=== PATIENT | male | born 1955 | race Caucasian/White ===

== ENCOUNTER 2023-04-06 21:38 | Emergency (ER) | payer MEDICARE, SELFPAY ==
[2023-04-06 21:42] VITALS: BP 175/100; PULSE 112; RESP 19; TEMP 36.3; O2SAT 97
[2023-04-07 00:38] VITALS: BP 179/98; PULSE 109; RESP 18; O2SAT 97
[2023-04-07] MEDS: LIDOCAINE HCL 2% GEL UROJET 10 ML PKG (01:35)
[2023-04-07 01:59] LABS: Appearance Urine Turbid (Clear); Bacteria Urine 4+ /hpf; Bilirubin Urine Negative (Negative); Blood Urine 3+ (Negative); Color Urine Yellow (Yellow); Glucose Urine UA Negative (Negative); Ketones Urine Trace mg/dL (Negative); Leukocyte Esterase Ur 3+ LEU/UL (Negative); Need Manual Microscopic Reviewed; Nitrate Urine Positive (Negative); Protein Urine 2+ mg/dL (Negative); RBC Urine >100 /hpf (0-2); Specific Grav Ur 1.014 (1.001-1.035); Squamous Epithelial Cell Urine None seen /hpf (Few); Urobilinogen Urine 0.2 mg/dL (<2.0); WBC Urine >100 /hpf; pH Urine 6.5 (5.0-9.0)
[2023-04-07 02:01] VITALS: BP 141/75; PULSE 77; RESP 16; O2SAT 94
[2023-04-07 02:09] LABS: Add Urine Microscopic? YES
[2023-04-07 02:22] LABS: Basophils Absolute Auto 0.1 K/mm3 (0.0-0.1); Basophils Percent Auto 0.6 % (0.2-1.2); Eosinophils Percent Auto 0.1 % (0-4.4); Hematocrit 38.6 % (42.0-52.0); Hemoglobin 12.4 g/dL (14.0-18.0); Immature Granulocyte Absolute 0.04 K/mm3 (0.00-0.031); Immature Granulocyte Percent A 0.4 % (0-0.5); Lymphocytes Absolute Auto 1.19 K/mm3 (0.9-3.2); Mean Corpuscular HGB Conc 32.1 g/dl (32-36); Mean Corpuscular Hemoglobin 29.1 pg (26-34); Mean Corpuscular Volume 90.6 fl (80-100); Mean Platelet Volume 10.4 fl (7.4-10.4); Monocytes Absolute Auto 0.8 K/mm3 (0.1-0.6); Monocytes Percent Auto 7.6 % (2.6-8.5); Neutrophils Absolute Auto 8.7 K/mm3 (1.3-6.7); Neutrophils Percent Auto 80.3 % (45.5-73.1); Platelet Count Result 232 k/mm3 (150-375); Red Blood Count 4.26 M/mm3 (4.6-6.20); Red Cell Distribution Width 15.1 % (11.5-14.5); White Blood Count 10.8 K/mm3 (4.5-10.0)
[2023-04-07 02:37] LABS: Alanine Aminotransferase 23 U/L (6-50); Albumin Level 3.9 g/dL (3.5-5.1); Alkaline Phosphatase 131 U/L (38-126); Anion Gap 8 mmol/L (8-16); Aspartate Amino Transferase 23 U/L (17-59); Bilirubin,Total 0.5 mg/dL (0.2-1.3); Blood Urea Nitrogen 16 mg/dL (9-20); Calcium 8.7 mg/dL (8.4-10.2); Carbon Dioxide 28 mmol/L (22-30); Chloride 103 mmol/L (98-107); Estimated CRCL calculation 74 ml/min; Estimated Glomerular Filt Rate > 60; Glucose 106 mg/dL (65-110); Potassium 3.8 mmol/L (3.4-5.0); Sodium 139 mmol/L (137-145)
--- NOTE | 2023-04-07 02:57 | ED.GENADULT ---
HPI - General Adult General Chief complaint: Urogenital-Male Stated complaint: clogged catheter Time Seen by Provider: 04/07/23 01:08 Source: patient and family Mode of arrival: ambulatory Limitations: no limitations History of Present Illness HPI narrative: Patient is a 67-year-old male, with PMH of intellectual disability, who presents to the ED with his brother with report of clogged Almendarez catheter. Patient has a chronic indwelling Almendarez catheter. Family noted today that patient's catheter seem to be draining around his urethra, not into the Almendarez catheter bag. Brother attempted to flush the catheter but it still was not draining properly. He notes there was a similar episode of the catheter possibly being clogged earlier in the week which was able to be resolved with flushing it. He was then brought here for further evaluation. Patient denies any acute complaints. Denies any pain, abdominal pain, back pain, nausea, vomiting, fevers. Patient typically sees Kelsi Milton with our urology group. He has his Almendarez catheter changed in office typically once a month. He has an appointment for this on Thursday. Related Data Allergies Allergy/AdvReac Type Severity Reaction Status Date / Time No Known Allergies Allergy Verified 04/07/23 00:34 Review of Systems Review of Systems: CONSTITUTIONAL: Denies fever, chills, or sweats. CARDIOVASCULAR: Denies chest pain. RESPIRATORY: Denies dyspnea. GASTROINTESTINAL: Denies abdominal pain, nausea, vomiting. GENITOURINARY: See HPI. SKIN: Denies rash or itching. MUSCULOSKELETAL: Denies back pain. NEUROLOGIC: Denies headache, numbness, or weakness. All systems reviewed & are unremarkable except as noted in HPI and below Exam Narrative: GENERAL: Well appearing, well-nourished, non-toxic, in no acute distress. HEAD: Normocephalic, atraumatic. NECK: Supple. No adenopathy, no masses. RESPIRATORY: Airway patent, respirations nonlabored. Clear to auscultation bilaterally, no rales, rhonchi, wheezing. CARDIOVASCULAR: Regular rate and rhythm without murmurs, rubs, or gallops. Radial pulses 2+ and equal bilaterally. ABDOMINAL: Soft, no tenderness throughout abdomen, nondistended, no hepatosplenomegaly. Normoactive BS. Colostomy bag in left lower abdomen. MUSCULOSKELETAL: Moves all extremities. Strength/ROM intact without gross deformities. SKIN: Warm, dry, normal color. No rashes. NEURO: A&O X3. Speech clear. Cranial nerves II-XII grossly intact. Steady gait. No ataxic movements. PSYCHIATRIC: Appropriate mood and affect. Normal interaction. Course Vital Signs Vital signs: Vital Signs Temperature 97.4 F L 04/06/23 21:42 Pulse Rate 112 H 04/06/23 21:42 Respiratory Rate 19 04/06/23 21:42 Blood Pressure 175/100 H 04/06/23 21:42 Pulse Oximetry 97 04/06/23 21:42 Oxygen Delivery Room Air 04/06/23 21:42 Temperature 97.4 F L 04/06/23 21:42 Pulse Rate 77 04/07/23 02:01 Respiratory Rate 16 04/07/23 02:01 Blood Pressure 141/75 H 04/07/23 02:01 Pulse Oximetry 94 04/07/23 02:01 Oxygen Delivery Room Air 04/06/23 21:42 Medical Decision Making MDM Narrative Medical decision making narrative: Patient presented to ED with concern for Almendarez catheter being clogged, draining around urethra instead of into tubing. Patient stable upon arrival. Tachycardia resolved by the time of my evaluation. Patient was bladder scanned upon arrival and not noted to have any significant retention. Almendarez catheter was changed and now draining appropriately. Did drain a small amount of blood and some sediment noted with the urine. Urinalysis consistent with infection. Patient given dose of ceftriaxone in the ED. Basic laboratory studies obtained and reassuring. Minimal leukocytosis of 10.8. Stable kidney function. No other significant abnormalities. Patient denying any abdominal or back pain to suggest need for further imaging. No systemic signs of infection. Patient will b
== END 2023-04-07 03:25 | disposition home or self-care (01) ==
PROVIDERS: Emergency Medicine; Emergency Provider Physician Assistant; PCP Internal Medicine
DX: T83.098A Other mechanical complication of other urinary catheter, initial encounter (principal); Y84.6 Urinary catheterization as the cause of abnormal reaction of the patient, or of later complication, without mention of misadventure at the time of the procedure
CPT/HCPCS: 36415; 51702; 80053; 81001; 85025; 87077; 87086; 87186; 96365; 99284; J0696

== ENCOUNTER 2023-05-26 00:52 | Emergency (ER) | payer MEDICARE, SELFPAY ==
[2023-05-26 01:29] VITALS: BP 151/89; PULSE 123; RESP 16; TEMP 36.3; O2SAT 97
[2023-05-26 02:30] VITALS: BP 161/83; PULSE 103; RESP 14; O2SAT 99
[2023-05-26 03:30] VITALS: BP 144/82; PULSE 99; RESP 14; O2SAT 96
[2023-05-26 04:30] VITALS: BP 136/77; PULSE 88; RESP 14; O2SAT 97
--- NOTE | 2023-05-26 04:38 | PC.NURSE ---
pt. bladder scanned, 113 ML in urine, pt. catheter flushed with 120 ml NS, with 120 ml NS return. pt. has 100 ml that has since drained after catheter irrigation.
[2023-05-26 05:02] LABS: Appearance Urine Turbid (Clear); Bacteria Urine 4+ /hpf; Bilirubin Urine Negative (Negative); Blood Urine 3+ (Negative); Calcium Oxalate Crystals Urine Present /hpf; Color Urine Yellow (Yellow); Glucose Urine UA Negative (Negative); Ketones Urine Trace mg/dL (Negative); Leukocyte Esterase Ur 3+ LEU/UL (Negative); Mucus Urine Present /lpf; Nitrate Urine Positive (Negative); Protein Urine 1+ mg/dL (Negative); RBC Urine >100 /hpf (0-2); Specific Grav Ur 1.007 (1.001-1.035); Squamous Epithelial Cell Urine None seen /hpf (Few); Urobilinogen Urine 0.2 mg/dL (<2.0); WBC Urine >100 /hpf; pH Urine 7.5 (5.0-9.0)
[2023-05-26 05:03] LABS: Add Urine Microscopic? YES
--- NOTE | 2023-05-26 06:08 | ED.MALEGU ---
HPI - Male Genitourinary General Chief complaint: Urogenital-Male Stated complaint: abd pain Time Seen by Provider: 05/26/23 02:26 History of Present Illness HPI Narrative: Patient brought to the emergency department by his brother. Brother is his technical research scientist. Brother states that patient has been complaining of lower abdominal discomfort. He also notes that the urine is a pink color. He is concerned that the patient has a urinary tract infection. Patient has an indwelling Almendarez catheter Related Data Allergies Allergy/AdvReac Type Severity Reaction Status Date / Time No Known Allergies Allergy Verified 05/26/23 01:31 Review of Systems Review of Systems: Unable to assess review of systems due to patient's been baseline mental status Exam Narrative: GENERAL: Well-appearing, well-nourished, and in no acute distress. Keeps eyes closed HEAD: Normocephalic, atraumatic. EYES: PERRLA and EOMI. ENT: Nares clear, no rhinorrhea or epistaxis. Mucous membranes moist. NECK: Supple. CHEST: Clear to auscultation. No respiratory distress. HEART: Regular rate and rhythm. ABDOMEN: Soft, nontender, nondistended. EXTREMITIES: Normal range of motion. No edema. SKIN: Warm, dry, no rash. NEURO: No focal deficits. Alert and oriented x3. PSYCH: Normal mood and affect. Course Course Emergency Course: Abdomen is soft and nontender. Patient is not in any distress but also does not communicate well. Vital signs are stable, no fever and no tachycardia. He has a urinary tract infection, sensitivity to most antibiotics based on previous culture results Vital Signs Vital signs: Vital Signs Temperature 36.3 C L 05/26/23 01:29 Pulse Rate 123 H 05/26/23 01:29 Respiratory Rate 16 05/26/23 01:29 Blood Pressure 151/89 H 05/26/23 01:29 Pulse Oximetry 97 05/26/23 01:29 Oxygen Delivery Room Air 05/26/23 01:29 Temperature 36.3 C L 05/26/23 01:29 Pulse Rate 88 05/26/23 04:30 Respiratory Rate 14 05/26/23 04:30 Blood Pressure 136/77 05/26/23 04:30 Pulse Oximetry 97 05/26/23 04:30 Oxygen Delivery Room Air 05/26/23 01:29 MDM - Male Genitourinary Lab Data Labs: Lab Results 05/26/23 Range/Units 04:33 Urine Color Yellow (Yellow) Urine Appearance Turbid H (Clear) Urine pH 7.5 (5.0-9.0) Ur Specific [place] 1.007 (1.001-1.035) Urine Protein 1+ H (Negative) mg/dL Urine Glucose (UA) Negative (Negative) mg/dL Urine Ketones Trace H (Negative) mg/dL Ur Blood (Man) 3+ H (Negative) Urine Nitrate Positive H (Negative) Urine Bilirubin Negative (Negative) Urine Urobilinogen 0.2 (<2.0) mg/dL Leukocyte Esterase Rfl 3+ H (Negative) MOJGAN/UL Urine RBC >100 H (0-2) /hpf Urine WBC >100 H /hpf Ur Squamous Epith Cells None seen (Few) /hpf Calcium Oxalate Crystal Present (None) /hpf Urine Bacteria 4+ H /hpf Urine Casts 6-10 Urine Mucus Present /lpf Discharge Plan Discharge Clinical Impression: Urinary tract infection Qualifiers: Urinary tract infection type: catheter-associated UTI Indwelling urinary catheter type: indwelling urethral catheter Encounter type: initial encounter Qualified Code(s): T83.511A - Infection and inflammatory reaction due to indwelling urethral catheter, initial encounter Patient Disposition: Home, Self-Care Condition: Stable Instructions: Antibiotic Form, Urinary Tract Infection in Men (ED) Prescriptions: No Action cephalexin 500 mg capsule 500 mg PO Q6H 7 Days Qty: 28 0RF Follow-up/Referrals: Radha,Roderick Andino MD [Primary Care Provider] - Time of Disposition: 06:14
[2023-05-26] MEDS: CEPHALEXIN 500 MG CAPSULE PO (06:30)
== END 2023-05-26 06:40 | disposition home or self-care (01) ==
PROVIDERS: Emergency Provider Emergency Medicine; PCP Internal Medicine
DX: T83.511A Infection and inflammatory reaction due to indwelling urethral catheter, initial encounter (principal)
CPT/HCPCS: 81001; 87086; 87088; 99283; A9270

== ENCOUNTER 2023-06-18 13:54 | Emergency (ER) | payer MEDICARE, SELFPAY ==
--- NOTE | ~2023-06-18 | CT_ITS ---
EXAMINATION: CT brain wo con DATE: 06/18/2023 20:45 INDICATION: Dizziness. Head injury. TECHNIQUE: Computed tomography (CT) of the head was performed without intravenous contrast. The mA wa s adjusted according to patient size. Iterative reconstruction technique was employed. The dose-lengt h product was 681.00 mGy-cm. COMPARISON: None FINDINGS: There is no intracranial hemorrhage, acute infarction, or abnormal intracranial mass lesion . The ventricles are normal in size. The orbits are normal. There is mild mucosal thickening in the p aranasal sinuses. The mastoid air cells are normal. IMPRESSION: 1. Normal brain. Reviewed, dictated and finalized at location E. SPECIALIST IMPRESSION: 1. Normal brain.
[2023-06-18 13:59] VITALS: BP 117/99; PULSE 110; RESP 18; TEMP 36.9; O2SAT 96
[2023-06-18 18:57] VITALS: BP 128/65; PULSE 87; RESP 14; TEMP 36.4; O2SAT 97
[2023-06-18] MEDS: SODIUM CHLORIDE 0.9% IV 1,000 ML 999 ML IV CONT (20:11)
[2023-06-18 20:18] LABS: Basophils Percent Auto 0.2 % (0.2-1.2); Eosinophils Percent Auto 0.1 % (0-4.4); Hematocrit 39.5 % (42.0-52.0); Hemoglobin 12.7 g/dL (14.0-18.0); Immature Granulocyte Absolute 0.08 K/mm3 (0.00-0.031); Immature Granulocyte Percent A 0.5 % (0-0.5); Lymphocytes Absolute Auto 0.41 K/mm3 (0.9-3.2); Lymphocytes Percent Auto 2.7 % (18.3-44.2); Mean Corpuscular HGB Conc 32.2 g/dl (32-36); Mean Corpuscular Volume 90.2 fl (80-100); Mean Platelet Volume 10.2 fl (7.4-10.4); Monocytes Absolute Auto 0.7 K/mm3 (0.1-0.6); Monocytes Percent Auto 4.9 % (2.6-8.5); Neutrophils Absolute Auto 13.7 K/mm3 (1.3-6.7); Neutrophils Percent Auto 91.6 % (45.5-73.1); Platelet Count Result 195 k/mm3 (150-375); Red Blood Count 4.38 M/mm3 (4.6-6.20); Red Cell Distribution Width 16.2 % (11.5-14.5)
--- NOTE | 2023-06-18 20:22 | ED.GENADULT ---
HPI - General Adult General Chief complaint: Dizziness Stated complaint: Dizziness Time Seen by Provider: 06/18/23 19:41 History of Present Illness HPI narrative: patient is a 67-year-old male who presents to the ER with reports of dizziness. Patient's brother is his pipe line maintenance supervisor and provides the history. Patient was bending over after changing his colostomy bag when he got dizzy falling forward and striking his head on the right side. No LOC. Patient without focal weakness. Patient apparently had elevated temperature earlier. His urine in his Almendarez has been darker than typical. Bother reports decreased fluid intake today but otherwise normal eating prior to that. No known sick contacts. No extremity weakness. Related Data Allergies Allergy/AdvReac Type Severity Reaction Status Date / Time No Known Allergies Allergy Verified 05/26/23 01:31 Review of Systems Review of Systems: ROS unobtainable: Yes unobtainable due to mental status ( Baseline) PMFSH Past Medical History Medical History (Updated 06/18/23 @ 22:48 by Tad Morrison MD) Colon cancer Surgical History Surgical History (Updated 06/18/23 @ 20:25 by Tad Morrison MD) History of partial colectomy Exam Narrative: GENERAL: Well-appearing, well-nourished, and in no acute distress. HEAD: Normocephalic, Small abrasion right temporal region. ENT: Mucous membranes moist. NECK: Supple. CHEST: Clear to auscultation. No respiratory distress. HEART: Regular rate and rhythm. Normal peripheral pulses. ABDOMEN: Soft, nontender, nondistended. EXTREMITIES: Normal range of motion. No edema. SKIN: Warm, dry, no rash. NEURO: awake and alert and at neurologic baseline. Course Course Emergency Course: Patient ambulate safely. Discussed lab results in family come for discharge home with oral antibiotics. Patient did receive IV ceftriaxone here. Vital Signs Vital signs: Vital Signs Temperature 98.4 F 06/18/23 13:59 Pulse Rate 110 H 06/18/23 13:59 Respiratory Rate 18 06/18/23 13:59 Blood Pressure 117/99 H 06/18/23 13:59 Pulse Oximetry 96 06/18/23 13:59 Oxygen Delivery Room Air 06/18/23 13:59 Temperature 97.5 F L 06/18/23 18:57 Pulse Rate 87 06/18/23 22:16 Respiratory Rate 18 06/18/23 22:16 Blood Pressure 118/76 06/18/23 22:16 Pulse Oximetry 99 06/18/23 22:16 Oxygen Delivery Room Air 06/18/23 13:59 Medical Decision Making Vital Signs Vital Signs: Vital Signs Temperature 98.4 F 06/18/23 13:59 Pulse Rate 110 H 06/18/23 13:59 Respiratory Rate 18 06/18/23 13:59 Blood Pressure 117/99 H 06/18/23 13:59 Pulse Oximetry 96 06/18/23 13:59 Oxygen Delivery Room Air 06/18/23 13:59 Temperature 97.5 F L 06/18/23 18:57 Pulse Rate 87 06/18/23 22:16 Respiratory Rate 18 06/18/23 22:16 Blood Pressure 118/76 06/18/23 22:16 Pulse Oximetry 99 06/18/23 22:16 Oxygen Delivery Room Air 06/18/23 13:59 Lab Data 06/18/23 20:10 06/18/23 20:10 Labs: Lab Results 06/18/23 06/18/23 Range/Units 20:10 21:18 WBC 15.0 H (4.5-10.0) K/mm3 RBC 4.38 L (4.6-6.20) M/mm3 Hgb 12.7 L (14.0-18.0) g/dL Hct 39.5 L (42.0-52.0) % MCV 90.2 (80-100) fl MCH 29.0 (26-34) pg MCHC 32.2 (32-36) g/dl RDW 16.2 H (11.5-14.5) % Plt Count 195 (150-375) k/mm3 MPV 10.2 (7.4-10.4) fl Immature Gran % (Auto) 0.5 (0-0.5) % Neut % (Auto) 91.6 H (45.5-73.1) % Lymph % (Auto) 2.7 L (18.3-44.2) % Swain % (Auto) 4.9 (2.6-8.5) % Eos % (Auto) 0.1 (0-4.4) % Baso % (Auto) 0.2 (0.2-1.2) % Lymph # (Auto) 0.41 L (0.9-3.2) K/mm3 Swain # (Auto) 0.7 H (0.1-0.6) K/mm3 Eos # (Auto) 0.0 (0-0.3) K/mm3 Baso # (Auto) 0.0 (0.0-0.1) K/mm3 Abs Immat Gran (auto) 0.08 H (0.00-0.031) K/mm3 Absolute Neuts (auto) 13.7 H (1.3-6.7) K/mm3 Absolute Nucleated RBC 0.0 (0.0-0.012) K/mm3 Nucleated RBC % 0.0 (0.
[2023-06-18 20:52] LABS: Potassium 3.9 mmol/L (3.4-5.0)
[2023-06-18 20:54] LABS: Influenza A QL RT-PCR Negative (Negative); Influenza B QL RT-PCR Negative (Negative); SARS-CoV-2 RNA PCR Negative (Negative)
[2023-06-18 21:00] LABS: Alanine Aminotransferase 31 U/L (6-50); Albumin Level 3.9 g/dL (3.5-5.1); Alkaline Phosphatase 113 U/L (38-126); Anion Gap 9 mmol/L (8-16); Aspartate Amino Transferase 26 U/L (17-59); Bilirubin,Total 1.1 mg/dL (0.2-1.3); Blood Urea Nitrogen 18 mg/dL (9-20); Calcium 8.9 mg/dL (8.4-10.2); Carbon Dioxide 21 mmol/L (22-30); Chloride 104 mmol/L (98-107); Estimated CRCL calculation 70 ml/min; Estimated Glomerular Filt Rate > 60; Glucose 167 mg/dL (65-110); Sodium 134 mmol/L (137-145)
[2023-06-18 21:32] VITALS: BP 136/68; BP 138/83; PULSE 79; PULSE 93
[2023-06-18 21:34] LABS: Appearance Urine Turbid (Clear); Bacteria Urine 1+ /hpf; Bilirubin Urine Negative (Negative); Blood Urine 3+ (Negative); Color Urine Yellow (Yellow); Glucose Urine UA Negative (Negative); Ketones Urine 1+ mg/dL (Negative); Leukocyte Esterase Ur 3+ LEU/UL (Negative); Mucus Urine Present /lpf; Need Manual Microscopic Reviewed; Nitrate Urine Positive (Negative); Protein Urine 2+ mg/dL (Negative); RBC Urine 21-50 /hpf (0-2); Squamous Epithelial Cell Urine Occasional /hpf (Few); Urobilinogen Urine 0.2 mg/dL (<2.0); WBC Urine >100 /hpf; pH Urine 5.5 (5.0-9.0)
[2023-06-18 21:35] LABS: Add Urine Microscopic? YES
[2023-06-18 21:36] VITALS: BP 144/81; PULSE 95
[2023-06-18 22:16] VITALS: BP 118/76; PULSE 87; RESP 18; O2SAT 99
--- NOTE | 2023-06-18 22:16 | PC.NURSE ---
pt ambulated with RN, gait steady.
== END 2023-06-18 23:23 | disposition home or self-care (01) ==
PROVIDERS: Emergency Provider Emergency Medicine; PCP Internal Medicine
DX: N39.0 Urinary tract infection, site not specified (principal); S00.81XA Abrasion of other part of head, initial encounter; Z20.822 Contact with and (suspected) exposure to COVID-19; Z93.3 Colostomy status; Z85.038 Personal history of other malignant neoplasm of large intestine; Z90.49 Acquired absence of other specified parts of digestive tract; W18.39XA Other fall on same level, initial encounter
CPT/HCPCS: 36415; 70450; 80053; 81001; 85025; 87086; 87088; 87636; 96361; 96365; 99284; J0696; J7030

== ENCOUNTER 2025-01-07 10:09 | Inpatient (IN) | payer MEDICARE, SELFPAY ==
[2025-01-07] VITALS (7 sets, daily range): BP systolic 153–198; BP diastolic 76–105; PULSE 59–117; RESP 16–20; TEMP 36.4; O2SAT 96–99; BMI 26.1
--- NOTE | ~2025-01-07 | CT_ITS ---
EXAMINATION: CT abdomen pelvis wo con DATE: 01/07/2025 18:16 INDICATION: hematuria TECHNIQUE: Computed tomography (CT) of the abdomen and pelvis was performed without intravenous contr ast. Automated exposure control and iterative reconstruction technique were employed. The dose-length product was 282.10 mGy-cm. COMPARISON: None. FINDINGS: Lower thorax: Asymmetric gynecomastia, larger and more masslike on the left. Bibasilar dependent scar /atelectasis. Liver: Normal. Biliary/Gallbladder: Gallbladder is normal. No bile duct dilation. Pancreas: No mass or duct dilation. Spleen: Normal. Adrenals:No mass. Kidneys: Multiple nonobstructing bilateral calcifications. Moderate right hydronephrosis, without obs tructing stone or mass detected. GI tract: Left lower quadrant colostomy. No small or large bowel dilation. Appendix not visualized. Mesentery/Peritoneum: No ascites, mass, or free air. Retroperitoneum: No mass. Pelvis: The bladder is decompressed by Almendarez catheter. Likely status post prostatectomy and proctecto my. Presacral soft tissue thickening with dystrophic calcifications. Soft Tissues: Large left lower abdominal wall hernia containing the majority of large and small bowel . Soft tissue thickening and induration over the sacrum. Moderate sized, uncomplicated appearing fat- containing umbilical hernia. Bones: No acute osseous finding. IMPRESSION: Asymmetric gynecomastia, larger on the left, recommend mammography and breast ultrasound for further evaluation. Moderate right hydronephrosis, possibly secondary to postsurgical or post therapeutic adhesions/scarr ing. An obstructing stone or mass is not detected. Apparent prior prostatectomy and proctectomy, correlate with surgical history. Soft tissue thickening with dystrophic calcifications in the presacral soft tissues, residual or recurrent mass not exclude d. Possible sacral decubitus ulcer. Correlate with exam findings. Reviewed, dictated and finalized at location K. IMPRESSION: Asymmetric gynecomastia, larger on the left, recommend mammography and breast u ltrasound for further evaluation. Moderate right hydronephrosis, possibly secondary to postsurgical or post thera peutic adhesions/scarring. An obstructing stone or mass is not detected. Apparent prior prostatectomy and proctectomy, correlate with surgical history. Soft tissue thickening with dystrophic calcifications in the presacral soft tis sues, residual or recurrent mass not excluded. Possible sacral decubitus ulcer. Correlate with exam findings.
--- NOTE | ~2025-01-07 | CT_ITS ---
EXAMINATION: CT abdomen pelvis wo/w con DATE: 01/09/2025 10:43 INDICATION: Hematuria. Hydronephrosis. TECHNIQUE: Computed tomography (CT) of the abdomen and pelvis was performed without intravenous contr ast. CT of the abdomen and pelvis was then performed with a total of 130 mL Omnipaque-350 intravenous contrast using a double-bolus technique for simultaneous opacification of the renal parenchyma and r enal collecting system. Automated exposure control and iterative reconstruction technique were employ ed. The dose-length product was 672.00 mGy-cm. COMPARISON: None FINDINGS: Mild discoid atelectasis at the basilar left lower lobe. Heart size is normal. No pericardial or pleu ral effusion. Calcification in the liver and spleen consistent with old granulomatous disease. Gallbl adder, pancreas and bilateral adrenal glands are normal. There is moderate left hydroureteronephrosis which extends to the pelvis were there unchanged prior distal colectomy with postoperative scarring with surgical clips and dystrophic calcifications in the presacral space. There is some cortical scar ring at both kidneys. Bilateral nonobstructing nephrolithiasis with at a couple stones the larger machelle suring 4-5 mm stone in upper pole calyx of the right kidney and multiple calcific densities which cou ld represent stones, stone fragments or milk of calcium layering along the dependent aspect of many o f the dilated calyces of the left kidney, the largest measuring 9 mm in maximal diameter. Additional small amount of calcification layering in the dependent aspect of the dilated proximal to mid left ur eter. Contrast opacifies the entirety of the normal caliber right renal collecting system and ureter on the postcontrast imaging with no right-sided hydronephrosis. Some of the excreted contrast is seen outlining a Almendarez catheter bulb within the partially decompressed bladder. Status post prostatectomy . Left lower quadrant and colostomy. Large parastomal hernia containing a significant portion of the bowel. No dilated bowel to suggest obstruction. No free intraperitoneal gas or fluid. No pathological ly enlarged abdominal or pelvic lymphadenopathy. Mild lumbar levocurvature. Bone islands at the left femoral neck and left innominate bone. IMPRESSION: 1. Moderate left hydroureteronephrosis which appears secondary to likely stricture at the distal left ureter or passed through a region of scarring with dystrophic calcifications in the presacral space extending to the base of the bladder which could be related to prior surgery or potentially radiation treatment of prior distal colectomy and prostatectomy. 2. Bilateral nonobstructing nephrolithiasis. 3. Left lower quadrant and colostomy with large parastomal hernia containing a significant amount of the bowel without obstruction. Reviewed, dictated and finalized at location B. IMPRESSION: 1. Moderate left hydroureteronephrosis which appears secondary to likely strict ure at the distal left ureter or passed through a region of scarring with dystr ophic calcifications in the presacral space extending to the base of the bladde r which could be related to prior surgery or potentially radiation treatment of prior distal colectomy and prostatectomy. 2. Bilateral nonobstructing nephrolithiasis. 3. Left lower quadrant and colostomy with large parastomal hernia containing a significant amount of the bowel without obstruction.
[2025-01-07 15:35] LABS: Bacteria Urine None Seen /hpf; Need Manual Microscopic Reviewed; RBC Urine >100 /hpf (0-2); Squamous Epithelial Cell Urine None Seen /hpf (Few); WBC Urine >100 /hpf (0-3)
[2025-01-07 15:40] LABS: Add Urine Microscopic? YES; Appearance Urine Cloudy (Clear); Bilirubin Urine Negative (Negative); Blood Urine 3+ (Negative); Color Urine Red (Yellow); Glucose Urine UA Negative (Negative); Ketones Urine Negative (Negative); Leukocyte Esterase Ur 3+ LEU/UL (Negative); Nitrate Urine Negative (Negative); Protein Urine 3+ mg/dL (Negative); Specific Grav Ur 1.011 (1.001-1.035); Urobilinogen Urine 0.2 mg/dL (<2.0)
--- NOTE | 2025-01-07 15:43 | ED_ITS ---
HPI - Male Genitourinary General Chief complaint: Urogenital-Male <Andra Soria PA-C - Last Filed: 01/07/25 20:43> Stated complaint: blood in urine <BENITO Devries Last Filed: 01/07/25 20:43> Time Seen by Provider: 01/07/25 13:58 <BENITO Devries Last Filed: 01/07/25 20:43> Source: patient and family <BENITO Devries Last Filed: 01/07/25 20:43> Mode of arrival: ambulatory <BENITO Devries Last Filed: 01/07/25 20:43> Limitations: no limitations <BENITO Devries Last Filed: 01/07/25 20:43> History of Present Illness HPI Narrative: Patient is a 69 y/o male, with PMH of intellectual disability, who presents to the ED with his brother with report of hematuria. Patient has had a chronic indwelling Almendarez catheter for the past couple of years. Brother reports that home health change the catheter on Thursday. Patient began having blood in his Almendarez catheter with small clots since then. Brother did notice some larger clots today. Does appear to still be draining. Patient denies abdominal or back pain. Denies nausea, vomiting, fevers. He is not on anticoagulation. < BENITO Devries Last Filed: 01/07/25 20:43> Related Data Home medications: Home Medications ?Medication ?Instructions ?Recorded ?Confirmed ?Last Taken ?Type ergocalciferol (vitamin D2) 1,000 1,000 mcg PO DAILY 01/07/25 01/07/25 Unknown History unit capsule finasteride 5 mg tablet 5 mg PO DAILY 01/07/25 01/07/25 Unknown History levothyroxine 25 mcg tablet 25 mcg PO DAILY 01/07/25 01/07/25 Unknown History pantoprazole 40 mg tablet,delayed 40 mg PO DAILY 01/07/25 01/07/25 Unknown History release rosuvastatin 5 mg tablet 5 mg PO DAILY 01/07/25 01/07/25 Unknown History <Andra Soria PA-C - Last Filed: 01/07/25 20:43> Allergies/Adverse reactions: Allergies Allergy/AdvReac Type Severity Reaction Status Date / Time No Known Allergies Allergy Verified 01/07/25 23:19 <Andra Soria PA-C - Last Filed: 01/07/25 20:43> Review of Systems 2 Review of Systems: All systems reviewed & are unremarkable except as noted in HPI. <Andra Soria PA-C - Last Filed: 01/07/25 20:43> All systems reviewed & are unremarkable except as noted in HPI and below < Andra Soria PA-C - Last Filed: 01/07/25 20:43> [facility] Past Medical History Medical History: Medical History (Updated 01/08/25 @ 11:51 by Lisa Burroughs MD) Hydronephrosis, left Hyperlipidemia Hypothyroidism Overactive bladder Kidney stones Indwelling Almendarez catheter present Colon cancer (2002) status post colon resection with colostomy and chemoradiation <Andra Soria PA-C - Last Filed: 01/07/25 20:43> Surgical History Surgical History: Surgical History (Updated 01/08/25 @ 02:22 by Lynn Navarrete PA-C) History of cystoscopy History of partial colectomy (2002) with colostomy, for colon cancer <Andra Soria PA-C - Last Filed: 01/07/25 20:43> Family History Family History: Family History Father Colon cancer Mother Dementia <Andra Soria PA-C - Last Filed: 01/07/25 20:43> Social History Social History: Social History Social History: Surrogate medical decision maker: Sammy Hall, brother ([phone]). Code status: Full code. Smoking status: Never smoker Alcohol intake: never Substance use: never Do You Feel Safe in your Home?: Yes Lack of Transportation: No Lack of Food: Never True Current Housing: I Have Housing Concerned About Future Housing: No Difficulty Paying Gas/Electric Bills: No Difficulty Paying for Meds: No Currently Unemployed: No Education: Grade School Difficulty w/ Childcare or Family Care: No Additional living arrangements comments: Lives with brother in [place]. Spiritual care concerns: No <Andra Soria PA-C - Last Filed: 01/07/25 20:43> Exam 2 Narrative: GENERAL: Well appearing, well-nourished, non-toxic, in no acute distress. HEAD: Normocephalic, atraumatic. RESPIRATORY: Airway patent, respirations nonlabored. Clear to auscultation bilaterally, no rales, rhonchi, wheezing. CARDIOVASCULAR: Regular rate and rhythm without murmurs, rubs, or gallops. ABDOMINAL: Soft, no appreciable tenderness throughout abdomen, nondistended. Normoactive BS. Colostomy in left lower quadrant. Almendarez catheter draining dark red urine with large blood clots. MUSCULOSKELETAL: Moves all extremities. No gross deformities. SKIN: Warm, dry, normal color. NEURO: A&O X3. Speech clear. Cranial nerves II-XII grossly intact. Steady gait. No ataxic movements. PSYCHIATRIC: Appropriate mood and affect. Normal interaction. <Andra Soria PA-C - Last Filed: 01/07/25 20:43> Course DRIVER HELPER/PA Physician Supervision PA informed me patient to be admitted. That discussed the indication and I had heard patient consulting Urology and admitting patient to the on-call hospitalist. I was available for consultation while patient was in the emergency department but otherwise did not physically evaluate this patient and was not directly involved in their care <Mansi Arteaga MD - Last Filed: 01/08/25 18:22> Vital Signs Vital signs: Vital Signs Temperature 97.6 F 01/07/25 10:10 Pulse Rate 117 H 01/07/25 10:10 Respiratory Rate 16 01/07/25 10:10 Blood Pressure 160/105 H 01/07/25 10:10 Pulse Oximetry 99 01/07/25 10:10 Temperature 97.7 F 01/08/25 14:00 Pulse Rate 76 01/08/25 14:00 Respiratory Rate 16 01/08/25 14:00 Blood Pressure 133/70 01/08/25 14:00 Pulse Oximetry 97 06/29/25 14:00 Oxygen Delivery Room Air 01/08/25 08:00 <Andra Soria PA-C - Last Filed: 01/07/25 20:43> Vital Signs Temperature 97.6 F 01/07/25 10:10 Pulse Rate 117 H 01/07/25 10:10 Respiratory Rate 16 01/07/25 10:10 Blood Pressure 160/105 H 01/07/25 10:10 Pulse Oximetry 99 01/07/25 10:10 Temperature 97.7 F 01/08/25 14:00 Pulse Rate 76 01/08/25 14:00 Respiratory Rate 16 01/08/25 14:00 Blood Pressure 133/70 01/08/25 14:00 Pulse Oximetry 97 01/08/25 14:00 Oxygen Delivery Room Air 01/08/25 08:00 <Mansi Arteaga MD - Last Filed: 01/08/25 18:22> MDM - Male Genitourinary MDM Narrative Medical decision making narrative: Patient presented to ED with hematuria in Almendarez catheter bag. Vital signs are stable upon arrival. Patient was initially mildly tachycardic, however this was improved by the time of my evaluation. There is dark red urine draining in Almendarez catheter bag with some large blood clots. Will replace catheter with 3 way catheter and attempt to flush out clots, start CBI. Urinalysis was obtained and with 3+ leuk esterase, greater than 100 RBC/WBC. Sent for culture. Will treat. Previous urine cultures in records have been sensitive to Rocephin. Patient given g of Rocephin in the ED. Laboratory studies without leukocytosis. H&H is stable. Kidney function is stable. CT scan of abdomen/pelvis was obtained: Moderate right hydronephrosis, possibly secondary to postsurgical or post therapeutic adhesions/scarring. An obstructing stone or mass is not detected. Apparent prior prostatectomy and proctectomy, correlate with surgical history. Soft tissue thickening with dystrophic calcifications in the presacral soft tissues, residual or recurrent mass not excluded. Per brother, patient has had prior partial colectomy, but as far as he is aware has not had his prostate removed. CBI was initiated. There was initial difficulty per ED nurse due to numerous clots. Urine is draining red clear after 1st bag of CBI. Attempted stopping CBI, however urine becomes very dark and clotted almost immediately. Will discuss with urology. Discussed case with Dr. Li, urology, agrees with plan for admission for continued CBI. Will consult and re-evaluate in the a.m. May potentially need ureteral stent for hydronephrosis. NPO at midnight. Discussed case with [facility] hospitalist, accepted patient for admission. Patient and family in agreement with plan and need for admission. < Andra Soria PA-C - Last Filed: 01/07/25 20:43> Medical Records Attestation: I reviewed the patient's medical records. <Andra Soria PA-C - Last Filed: 01/07/25 20:43> Lab Data Attestation: I reviewed the patient's lab results. <Andra Soria PA-C - Last Filed: 01/07/25 20:43> Result diagrams: 01/08/25 06:29 01/08/25 06:29 <Andra Soria PA-C - Last Filed: 01/07/25 20:43> Labs: Lab Results 01/07/25 01/07/25 01/08/25 Range/Units 15:13 16:02 06:29 WBC 8.8 7.7 (4.5-10.0) K/mm3 RBC 4.45 L 4.26 L (4.6-6.20) M/mm3 Hgb 12.8 L 12.1 L (14.0-18.0) g/dL Hct 39.5 L 38.3 L (42.0-52.0) % MCV 88.8 89.9 (80-100) fl MCH 28.8 28.4 (26-34) pg MCHC 32.4 31.6 L (32-36) g/dl RDW 15.0 H 15.2 H (11.5-14.5) % Plt Count 198 183 (150-375) k/mm3 MPV 10.6 H 10.6 H (7.4-10.4) fl Immature Gran % (Auto) 0.3 0.4 (0-0.5) % Neut % (Auto) 75.6 H 80.4 H (45.5-73.1) % Lymph % (Auto) 16.0 L 11.7 L (18.3-44.2) % [place] % (Auto) 7.6 6.8 (2.6-8.5) % Eos % (Auto) 0.2 0.3 (0-4.4) % Baso % (Auto) 0.3 0.4 (0.2-1.2) % Lymph # (Auto) 1.41 0.90 (0.9-3.2) K/mm3 [place] # (Auto) 0.7 H 0.5 (0.1-0.6) K/mm3 Eos # (Auto) 0.0 0.0 (0-0.3) K/mm3 Baso # (Auto) 0.0 0.0 (0.0-0.1) K/mm3 Abs Immat Gran (auto) 0.03 0.03 (0.00-0.031) K/mm3 Absolute Neuts (auto) 6.6 6.2 (1.3-6.7) K/mm3 Absolute Nucleated RBC 0.000 0.000 (0.0-0.012) K/mm3 Nucleated RBC % 0.0 0.0 (0.0-0.2) % PT 13.4 (11.1-14.7) Seconds INR 1.0 APTT 27.5 (22.3-36.8) Seconds Sodium 142 141 (137-145) mmol/L Potassium 4.0 3.7 (3.4-5.0) mmol/L Chloride 107 109 H (98-107) mmol/L Carbon Dioxide 24 22 (22-30) mmol/L Anion Gap 11 10 (4-12) mmol/L BUN 17 15 (9-20) mg/dL Creatinine 0.93 0.85 (0.7-1.3) mg/dL Estim Creat Clear Calc 63 68 ml/min Estimated GFR > 60 > 60 (59 - ) Glucose 98 107 (65-110) mg/dL Calcium 9.2 9.1 (8.4-10.2) mg/dL Magnesium 2.2 (1.6-2.3) mg/dL Total Bilirubin 0.4 (0.2-1.3) mg/dL AST 22 (17-59) U/L ALT 17 (6-50) U/L Alkaline Phosphatase 126 (38-126) U/L Total Protein 7.8 (6.3-8.2) g/dL Albumin 3.9 (3.5-5.1) g/dL TSH (Reflex) 2.170 (0.465-4.68) uIU/mL Urine Color Red H (Yellow) Urine Appearance Cloudy H (Clear) Urine pH 6.0 (5.0-9.0) Ur Specific [place] 1.011 (1.001-1.035) Urine Protein 3+ H (Negative) mg/dL Urine Glucose (UA) Negative (Negative) mg/dL Urine Ketones Negative (Negative) mg/dL Ur Blood (Man) 3+ H (Negative) Urine Nitrate Negative (Negative) Urine Bilirubin Negative (Negative) Urine Urobilinogen 0.2 (<2.0) mg/dL Add Ur Microanalysis Reviewed Leukocyte Esterase Rfl 3+ H (Negative) MOJGAN/UL Urine RBC >100 H (0-2) /hpf Urine WBC >100 H (0-3) /hpf Ur Squamous Epith Cells None seen (Few) /hpf Urine Bacteria None seen /hpf Urine Casts 3-5 <Andra Soria PA-C - Last Filed: 01/07/25 20:43> Lab Results 01/07/25 01/07/25 01/08/25 Range/Units 15:13 16:02 06:29 WBC 8.8 7.7 (4.5-10.0) K/mm3 RBC 4.45 L 4.26 L (4.6-6.20) M/mm3 Hgb 12.8 L 12.1 L (14.0-18.0) g/dL Hct 39.5 L 38.3 L (42.0-52.0) % MCV 88.8 89.9 (80-100) fl MCH 28.8 28.4 (26-34) pg MCHC 32.4 31.6 L (32-36) g/dl RDW 15.0 H 15.2 H (11.5-14.5) % Plt Count 198 183 (150-375) k/mm3 MPV 10.6 H 10.6 H (7.4-10.4) fl Immature Gran % (Auto) 0.3 0.4 (0-0.5) % Neut % (Auto) 75.6 H 80.4 H (45.5-73.1) % Lymph % (Auto) 16.0 L 11.7 L (18.3-44.2) % [place] % (Auto) 7.6 6.8 (2.6-8.5) % Eos % (Auto) 0.2 0.3 (0-4.4) % Baso % (Auto) 0.3 0.4 (0.2-1.2) % Lymph # (Auto) 1.41 0.90 (0.9-3.2) K/mm3 [place] # (Auto) 0.7 H 0.5 (0.1-0.6) K/mm3 Eos # (Auto) 0.0 0.0 (0-0.3) K/mm3 Baso # (Auto) 0.0 0.0 (0.0-0.1) K/mm3 Abs Immat Gran (auto) 0.03 0.03 (0.00-0.031) K/mm3 Absolute Neuts (auto) 6.6 6.2 (1.3-6.7) K/mm3 Absolute Nucleated RBC 0.000 0.000 (0.0-0.012) K/mm3 Nucleated RBC % 0.0 0.0 (0.0-0.2) % PT 13.4 (11.1-14.7) Seconds INR 1.0 APTT 27.5 (22.3-36.8) Seconds Sodium 142 141 (137-145) mmol/L Potassium 4.0 3.7 (3.4-5.0) mmol/L Chloride 107 109 H (98-107) mmol/L Carbon Dioxide 24 22 (22-30) mmol/L Anion Gap 11 10 (4-12) mmol/L BUN 17 15 (9-20) mg/dL Creatinine 0.93 0.85 (0.7-1.3) mg/dL Estim Creat Clear Calc 63 68 ml/min Estimated GFR > 60 > 60 (59 - ) Glucose 98 107 (65-110) mg/dL Calcium 9.2 9.1 (8.4-10.2) mg/dL Magnesium 2.2 (1.6-2.3) mg/dL Total Bilirubin 0.4 (0.2-1.3) mg/dL AST 22 (17-59) U/L ALT 17 (6-50) U/L Alkaline Phosphatase 126 (38-126) U/L Total Protein 7.8 (6.3-8.2) g/dL Albumin 3.9 (3.5-5.1) g/dL TSH (Reflex) 2.170 (0.465-4.68) uIU/mL Urine Color Red H (Yellow) Urine Appearance Cloudy H (Clear) Urine pH 6.0 (5.0-9.0) Ur Specific [place] 1.011 (1.001-1.035) Urine Protein 3+ H (Negative) mg/dL Urine Glucose (UA) Negative (Negative) mg/dL Urine Ketones Negative (Negative) mg/dL Ur Blood (Man) 3+ H (Negative) Urine Nitrate Negative (Negative) Urine Bilirubin Negative (Negative) Urine Urobilinogen 0.2 (<2.0) mg/dL Add Ur Microanalysis Reviewed Leukocyte Esterase Rfl 3+ H (Negative) MOJGAN/UL Urine RBC >100 H (0-2) /hpf Urine WBC >100 H (0-3) /hpf Ur Squamous Epith Cells None seen (Few) /hpf Urine Bacteria None seen /hpf Urine Casts 3-5 <Mansi Arteaga MD - Last Filed: 01/08/25 18:22> Imaging Data Attestation: I personally reviewed and interpreted this imaging study as follows: < Andra Soria PA-C - Last Filed: 01/07/25 20:43> Radiologist's impression: ITS Impressions Abdomen/Pelvis CT 01/07/25 18:53 IMPRESSION: Asymmetric gynecomastia, larger on the left, recommend mammography and breast ultrasound for further evaluation. Moderate right hydronephrosis, possibly secondary to postsurgical or post therapeutic adhesions/scarring. An obstructing stone or mass is not detected. Apparent prior prostatectomy and proctectomy, correlate with surgical history. Soft tissue thickening with dystrophic calcifications in the presacral soft tissues, residual or recurrent mass not excluded. Possible sacral decubitus ulcer. Correlate with exam findings. <Andra Soria PA-C - Last Filed: 01/07/25 20:43> Discharge Plan Discharge Clinical Impression: Gross hematuria, Hydronephrosis, right Urinary tract infection Qualifiers: Urinary tract infection type: catheter-associated UTI Indwelling urinary catheter type: indwelling urethral catheter Encounter type: initial encounter Q ualified Code(s): T83.511A - Infection and inflammatory reaction due to indwelling urethral catheter, initial encounter <Andra Soria PA-C - Last Filed: 01/07/25 20:43> Patient Disposition: Still a Patient <Andra Soria PA-C - Last Filed: 01/07/25 20:43> Condition: Stable <Andra Soria PA-C - Last Filed: 01/07/25 20:43>
[2025-01-07 16:07] LABS: Basophils Percent Auto 0.3 % (0.2-1.2); Eosinophils Percent Auto 0.2 % (0-4.4); Hematocrit 39.5 % (42.0-52.0); Hemoglobin 12.8 g/dL (14.0-18.0); Immature Granulocyte Absolute 0.03 K/mm3 (0.00-0.031); Immature Granulocyte Percent A 0.3 % (0-0.5); Lymphocytes Absolute Auto 1.41 K/mm3 (0.9-3.2); Mean Corpuscular HGB Conc 32.4 g/dl (32-36); Mean Corpuscular Hemoglobin 28.8 pg (26-34); Mean Corpuscular Volume 88.8 fl (80-100); Mean Platelet Volume 10.6 fl (7.4-10.4); Monocytes Absolute Auto 0.7 K/mm3 (0.1-0.6); Monocytes Percent Auto 7.6 % (2.6-8.5); Neutrophils Absolute Auto 6.6 K/mm3 (1.3-6.7); Neutrophils Percent Auto 75.6 % (45.5-73.1); Platelet Count Result 198 k/mm3 (150-375); Red Blood Count 4.45 M/mm3 (4.6-6.20); White Blood Count 8.8 K/mm3 (4.5-10.0)
[2025-01-07 16:18] LABS: Partial Thromboplastin Time 27.5 Seconds (22.3-36.8); Prothrombin Time 13.4 Seconds (11.1-14.7)
[2025-01-07] MEDS: SODIUM CHLORIDE 0.9% IV 1,000 ML 999 ML IV CONT (16:18)
[2025-01-07 16:19] LABS: Alanine Aminotransferase 17 U/L (6-50); Albumin Level 3.9 g/dL (3.5-5.1); Alkaline Phosphatase 126 U/L (38-126); Anion Gap 11 mmol/L (4-12); Aspartate Amino Transferase 22 U/L (17-59); Bilirubin,Total 0.4 mg/dL (0.2-1.3); Blood Urea Nitrogen 17 mg/dL (9-20); Calcium 9.2 mg/dL (8.4-10.2); Carbon Dioxide 24 mmol/L (22-30); Chloride 107 mmol/L (98-107); Estimated CRCL calculation 63 ml/min; Estimated Glomerular Filt Rate > 60; Glucose 98 mg/dL (65-110); Sodium 142 mmol/L (137-145); Total Protein 7.8 g/dL (6.3-8.2)
[2025-01-07] MEDS: WATER FOR IRRIGATION, STERILE 500 ML BOTTLE (16:19)
[2025-01-07] MEDS: LIDOCAINE 2% GEL UROJET 10 ML PKG (16:19)
--- NOTE | 2025-01-07 19:26 | PC.NURSE ---
Report received from KAYLA Yancey. Assumed care of patient at this time.
--- NOTE | 2025-01-07 21:05 | P.HP_ITS ---
H&P: HPI History of Present Illness Date/Time: 01/07/25 23:00 Chief Complaint: Blood in urine. Narrative: This is a 69-year-old male with history of urinary retention and chronic indwelling Almendarez catheter, colon cancer status post resection and chemoradiation in 2002, and intellectual disability who presented to the emergency department via private vehicle accompanied by his brother for evaluation of blood in urine. His Almendarez catheter was exchanged about 4 days ago and he has been passing small clots in his urine since that time. Today the clots seemed to be getting larger and the urine is now grossly bloody. He has had similar episodes in the past and prior cystoscopy with biopsy in 2018 was benign and it was felt that the hematuria was likely due to IMRT changes and cath cystitis. The patient denies fever, nausea, vomiting, abdominal pain, and back pain. In the ED: Vital signs on arrival include a temperature of 97.6?, blood pressure 160/105, pulse 117, SpO2 99% on room air. Labs were pretty unremarkable with a hemoglobin of 12.8 which is near his baseline. Renal function was normal. Urine was grossly bloody with 3+ leukocyte esterase greater than [address] of the abdomen and pelvis showed moderate right hydronephrosis and asymmetric gynecomastia. He was started on CBI and received ceftriaxone 1 g for possible UTI. He is being admitted in this setting for further treatment and urology consultation. Review of Systems Review of Systems: 12 systems were reviewed and are negativ e except for as per HPI. [facility] Past Medical History Medical History (Updated 01/08/25 @ 02:22 by Lynn Navarrete PA-C) Hyperlipidemia Hypothyroidism Overactive bladder Kidney stones Indwelling Almendarez catheter present Colon cancer (2002) status post colon resection with colostomy and chemoradiation Surgical History Surgical History (Updated 01/08/25 @ 02:22 by Lynn Navarrete PA-C) History of cystoscopy History of partial colectomy (2002) with colostomy, for colon cancer Family History Family History Father Colon cancer Mother Dementia Social History Social History Social History: Surrogate medical decision maker: Sammy Hall, brother ([phone]). Code status: Full code. Smoking status: Never smoker Alcohol intake: never Substance use: never Do You Feel Safe in your Home?: Yes Lack of Transportation: No Lack of Food: Never True Current Housing: I Have Housing Concerned About Future Housing: No Difficulty Paying Gas/Electric Bills: No Difficulty Paying for Meds: No Currently Unemployed: No Education: Grade School Difficulty w/ Childcare or Family Care: No Additional living arrangements comments: Lives with brother in [place]. Spiritual care concerns: No Meds Home Medications and Allergies Home Medications ?Medication ?Instructions ?Recorded ?Confirmed ?Type ergocalciferol (vitamin D2) 1,000 1,000 mcg PO DAILY 01/07/25 01/07/25 History unit capsule finasteride 5 mg tablet 5 mg PO DAILY 01/07/25 01/07/25 History levothyroxine 25 mcg tablet 25 mcg PO DAILY 01/07/25 01/07/25 History pantoprazole 40 mg tablet,delayed 40 mg PO DAILY 01/07/25 01/07/25 History release rosuvastatin 5 mg tablet 5 mg PO DAILY 01/07/25 01/07/25 History Allergies Allergy/AdvReac Type Severity Reaction Status Date / Time No Known Allergies Allergy Verified 01/07/25 23:19 Vital Signs Vital Signs - 24 hr 01/07/25 10:10 01/07/25 14:21 01/07/25 16:19 Temperature 97.6 F Pulse Rate 117 H 89 90 Respiratory Rate 16 16 20 Blood Pressure 160/105 H 153/87 H 198/89 H Pulse Oximetry 99 96 98 01/07/25 18:26 01/07/25 19:45 Temperature 97.5 F L Pulse Rate 84 59 L Respiratory Rate 18 17 Blood Pressure 161/76 H 173/87 H Pulse Oximetry 96 98 Exam Narrative: General: Well-developed, nontoxic-appearing male sitting up in bed in no acute distress. Weight: 70 kg. BMI: 26.1. HEENT: PERRL, EOMI. Sclera anicteric. Oral mucosa moist. Neck: Supple. Respiratory: Lungs are clear to auscultation bilaterally. Cardiovascular: Regular rate and rhythm with S1-S2. Gastrointestinal: Abdomen is soft, nontender, and nondistended with positive bowel sounds. Ostomy bag in the left abdomen continue a small amount of gas and was recently emptied. There is a peristomal hernia and a larger surrounding he rnia without tenderness to palpation. Genitourinary: Currently on CBI with light red fluid noted in the catheter to. Skin: Warm and dry. Extremities: No cyanosis, clubbing, or edema. Radial and pedal pulses intact. Neurological: Alert. Cranial nerves grossly intact. Speech is clear. No gross focal deficits to casual conversation. Psychiatric: Pleasant and cooperative. Slightly anxious. H&P: Results Labs Labs: Short CBC 01/07/25 Range/Units 16:02 WBC 8.8 (4.5-10.0) K/mm3 Hgb 12.8 L (14.0-18.0) g/dL Hct 39.5 L (42.0-52.0) % Plt Count 198 (150-375) k/mm3 BMP 01/07/25 16:02 Sodium 142 Potassium 4.0 Chloride 107 Carbon Dioxide 24 BUN 17 Creatinine 0.93 Glucose 98 Calcium 9.2 Liver Function 01/07/25 Range/Units 16:02 Total Bilirubin 0.4 (0.2-1.3) mg/dL AST 22 (17-59) U/L ALT 17 (6-50) U/L Alkaline Phosphatase 126 (38-126) U/L Albumin 3.9 (3.5-5.1) g/dL Urine 01/07/25 Range/Units 15:13 Urine Color Red H (Yellow) Urine Appearance Cloudy H (Clear) Urine pH 6.0 (5.0-9.0) Ur Specific [place] 1.011 (1.001-1.035) Urine Protein 3+ H (Negative) mg/dL Urine Glucose (UA) Negative (Negative) mg/dL Imaging Abdomen/Pelvis CT 01/07/25 18:53 IMPRESSION: Asymmetric gynecomastia, larger on the left, recommend mammography and breast ultrasound for further evaluation. Moderate right hydronephrosis, possibly secondary to postsurgical or post therapeutic adhesions/scarring. An obstructing stone or mass is not detected. Apparent prior prostatectomy and proctectomy, correlate with surgical history. Soft tissue thickening with dystrophic calcifications in the presacral soft tissues, residual or recurrent mass not excluded. Possible sacral decubitus ulcer. Correlate with exam findings. Assessment and Plan Assessment and plan (1) Gross hematuria: Code(s): R31.0 - Gross hematuria Status: Acute (2) Urinary tract infection: Qualifiers: Encounter type: initial encounter Indwelling urinary catheter type: indwelling urethral catheter Urinary tract infection type: catheter-associated UTI Qualified Code(s): T83.511A - Infection and inflammatory reaction due to indwelling urethral catheter, initial encounter; N39.0 - Urinary tract infection, site not specified Code(s): N39.0 - Urinary tract infection, site not specified Status: Acute (3) Hydronephrosis, right: Code(s): N13.30 - Unspecified hydronephrosis Status: Acute (4) Indwelling Almendarez catheter present: Code(s): Z97.8 - Presence of other specified devices Status: Acute (5) Elevated blood pressure reading: Code(s): R03.0 - Elevated blood-pressure reading, without diagnosis of hypertension Status: Acute (6) Gynecomastia, male: Code(s): N62 - Hypertrophy of breast Status: Acute (7) Hyperlipidemia: Code(s): E78.5 - Hyperlipidemia, unspecified Status: Acute (8) Hypothyroidism: Code(s): E03.9 - Hypothyroidism, unspecified Status: Acute Plan The patient presented to the emergency department for evaluation of for grossly bloody urine with clots after having his Almendarez catheter changed several days ago as detailed in the HPI. Labs, imaging, EKG, and all reports were personally reviewed. He has had similar episodes previously thought to be related to IMRT changes and cath cystitis. CT scan was negative for bladder mass and kidney stones but did note moderate right-sided hydronephrosis. He has been started on CBI. Urology was consulted by the ED provider. Urinalysis was positive for leukocyte esterase and greater than 100 WBC thus will continue with empiric ceftriaxone, pending urine culture. His blood pressure was 160/105 on arrival and he was noticeably anxious. Now that he is more calm, his blood pressures are improving. We will continue to monitor them closely for now. Incidental finding on CT scan showed asymmetric gynecomastia, larger on the left, for which the radiologist recommend mammography and breast ultrasound. This will need to be done as an outpatient and I discussed the findings with the patient's brother who will relay the message to his primary care physician. A courtesy copy of this note has also been sent to the patient's position. Chronic conditions without acute issues include hyperlipidemia and hypothyroidism. His home medications will be reviewed and resumed as appropriate. Findings and treatment plan were discussed with the patient and his brother. Questions were solicited and answered to satisfaction. The patient's medical management will be taken over by the hospitalist team in a.m. Quality VTE Prophylaxis VTE prophylaxis: mechanical ordered If No VTE Prophylaxis Answer both mechanical and pharmacologic: Reason no pharmacologic proph: medical contraindication (gross hematuria) The patient has been admitted under observation status. Hospitalist [facility] Advance Care Plan I have confirmed that the patient's Advanced Care Plan is present, code status is documented, or surrogate decision maker is listed in patient medical record.: Yes Medication Reconciliation I have utilized all available resources to obtain, update and review the patients current medications (includes all prescriptions, OTC, herbals, cannabis, and nutritional supplements).: Yes
[2025-01-08 00:20] VITALS: BP 155/76
[2025-01-08 06:00] VITALS: BP 155/74; PULSE 81; RESP 18; TEMP 36.3; O2SAT 97
[2025-01-08 06:59] LABS: Basophils Percent Auto 0.4 % (0.2-1.2); Eosinophils Percent Auto 0.3 % (0-4.4); Hematocrit 38.3 % (42.0-52.0); Hemoglobin 12.1 g/dL (14.0-18.0); Immature Granulocyte Absolute 0.03 K/mm3 (0.00-0.031); Immature Granulocyte Percent A 0.4 % (0-0.5); Lymphocytes Percent Auto 11.7 % (18.3-44.2); Mean Corpuscular HGB Conc 31.6 g/dl (32-36); Mean Corpuscular Hemoglobin 28.4 pg (26-34); Mean Corpuscular Volume 89.9 fl (80-100); Mean Platelet Volume 10.6 fl (7.4-10.4); Monocytes Absolute Auto 0.5 K/mm3 (0.1-0.6); Monocytes Percent Auto 6.8 % (2.6-8.5); Neutrophils Absolute Auto 6.2 K/mm3 (1.3-6.7); Neutrophils Percent Auto 80.4 % (45.5-73.1); Platelet Count Result 183 k/mm3 (150-375); Red Blood Count 4.26 M/mm3 (4.6-6.20); Red Cell Distribution Width 15.2 % (11.5-14.5); White Blood Count 7.7 K/mm3 (4.5-10.0)
[2025-01-08 07:22] LABS: Anion Gap 10 mmol/L (4-12); Blood Urea Nitrogen 15 mg/dL (9-20); Calcium 9.1 mg/dL (8.4-10.2); Carbon Dioxide 22 mmol/L (22-30); Chloride 109 mmol/L (98-107); Estimated CRCL calculation 68 ml/min; Estimated Glomerular Filt Rate > 60; Glucose 107 mg/dL (65-110); Magnesium 2.2 mg/dL (1.6-2.3); Potassium 3.7 mmol/L (3.4-5.0); Sodium 141 mmol/L (137-145)
--- NOTE | 2025-01-08 09:12 | P.PNIM_ITS ---
Progress Note: A&P Assessment and Plan (1) Gross hematuria: Code(s): R31.0 - Gross hematuria Status: Acute Assessment and Plan: Improved with CBI. Urine now clear on very slow drip CBI. Awaiting Urology consultation, appreciate recommendations. He is NPO at this time pending urology eval (2) Urinary tract infection: Qualifiers: Encounter type: initial encounter Indwelling urinary catheter type: indwelling urethral catheter Urinary tract infection type: catheter-associated UTI Qualified Code(s): T83.511A - Infection and inflammatory reaction due to indwelling urethral catheter, initial encounter; N39.0 - Urinary tract in fection, site not specified Code(s): N39.0 - Urinary tract infection, site not specified Status: Acute Assessment and Plan: Urine culture pending at this time. Currently on IV ceftriaxone, continue while awaiting urine culture results. WBC is within normal limits. Patient is afebrile. He has a history of chronic UTIs secondary to chronic Almendarez catheterization (3) Hydronephrosis, right: Code(s): N13.30 - Unspecified hydronephrosis Status: Acute Assessment and Plan: CT of the abdomen/pelvis showed moderate right hydronephrosis without evidence of obstruction. No prior imaging available for comparison. Will await further recommendations from Urology (4) Indwelling Almendarez catheter present: Code(s): Z97.8 - Presence of other specified devices Status: Acute Assessment and Plan: Chronic Almendarez catheter for many years (5) Elevated blood pressure reading: Code(s): R03.0 - Elevated blood-pressure reading, without diagnosis of hypertension Status: Acute Assessment and Plan: BP elevated on arrival to 170s-190 systolic. [place] to be anxiety related and BP is have improved. Most recent BP 155/74. He is not on any home antihypertensives. Continue to monitor BP trends closely (6) Gynecomastia, male: Code(s): N62 - Hypertrophy of breast Status: Acute Assessment and Plan: CT of abdomen/pelvis with incidental finding of asymmetric gynecomastia, left greater than right, with recommendations for mammography and/or breast ultrasound. These findings have been reviewed with patient's caregiver and will plan for close outpatient follow-up for evaluation (7) Hypothyroidism: Code(s): E03.9 - Hypothyroidism, unspecified Status: Acute Assessment and Plan: TSH is pending. Continue home levothyroxine Subjective Date/time seen: 01/08/25 09:12 Interval history: Jose is doing well today. His brother is present at the bedside and provides most history. He has been doing well with CBI and states urine is becoming more clear. He is concerned that when he is up and moving bleeding will return. The patient reports no additional concerns. Denies shortness of breath, cough, chest pain, nausea, vomiting, fever, chills, abdominal pain, dizziness, lightheadedness. His brother reports slightly decreased output from his ostomy bag, but states this occurs frequently and he is not concerned about it at this point Review of Systems Review of Systems: All systems reviewed & are unremarkable except as noted in HPI and below Exam Narrative: Neuro: awake, alert and oriented x3, patient has intellectual disability, speech slightly delayed, no focal neuro deficits noted HEENMT: normocephalic, atraumatic, EOMI, sclerae anicteric, moist oral mucosa Neck: supple, no lymphadenopathy Respiratory: clear to auscultation bilaterally, nonlabored breathing Cardio: regular rate, regular rhythm with S1-S2 Abdomen: nondistended, normoactive bowel sounds, soft, nontender to palpation, no rigidity or guarding, ostomy bag with minimal output of brown stool : Almendarez catheter draining dougie colored urine on very slow drip CBI Extremities: no edema, erythema, cyanosis, clubbing, or tenderness to palpation Skin: no rashes or lesions, warm and dry Psych: appropriate mood and affect, judgment and insight fair , Objective Data Vital Signs Vital Signs: Vital Signs - 24 hr 01/07/25 10:10 01/07/25 14:21 01/07/25 16:19 Temperature 97.6 F Pulse Rate 117 H 89 90 Respiratory Rate 16 16 20 Blood Pressure 160/105 H 153/87 H 198/89 H Pulse Oximetry 99 96 98 01/07/25 18:26 01/07/25 19:45 01/07/25 22:20 Temperature 97.5 F L Pulse Rate 84 59 L 91 Respiratory Rate 18 17 17 Blood Pressure 161/76 H 173/87 H 167/78 H Pulse Oximetry 96 98 97 01/07/25 22:51 01/08/25 00:20 01/08/25 06:00 Temperature 97.4 F L Pulse Rate 76 81 Respiratory Rate 17 18 Blood Pressure 176/82 H 155/76 H 155/74 H Pulse Oximetry 96 97 Intake/Output Intake/Output: Intake & Output 01/05/25 01/06/25 01/07/25 01/08/25 23:59 23:59 23:59 23:59 Intake Total 1050 0 Output Total 5150 Balance -4100 0 Meds/Results Medications: Active Medications Generic Name Dose Route Start Last Admin Trade Name Freq PRN Reason Stop Dose Admin Acetaminophen 650 mg 01/07/25 20:30 Acetaminophen 325 Mg Tablet PO Q4H PRN Mild Pain (1-3) or Fever Dextrose 12.5 gm 01/07/25 20:30 Dextrose 50% 25 Gm/50 Ml Syringe IV PUSH PRN PRN Hypoglycemia Protocol Finasteride 5 mg 01/08/25 09:00 Finasteride 5 Mg Tablet PO DAILY [facility] Glucagon 1 mg 01/07/25 20:30 Glucagon For Inj 1 Mg Vial IM PRN PRN Hypoglycemia Protocol Glucose 15 gm 01/07/25 20:30 Glucose Oral Gel 15 Gm Of Glucse In 37.5 Gm Tube PO PRN PRN Hypoglycemia Protocol Dextrose 1,000 mls @ 100 mls/hr 01/07/25 20:30 Dextrose 5% 1,000 Ml IVPB PRN PRN Hypoglycemia Protocol Ceftriaxone Sodium 1 gm in 50 mls @ 100 mls/hr 01/08/25 16:00 Rocephin 1 Gm/Ns 50 Ml IVPB Q24H [facility] Levothyroxine Sodium 25 mcg 01/08/25 06:30 Levothyroxine Sodium 25 Mcg Tablet PO DAILY@0630 [facility] Ondansetron HCl 4 mg 01/07/25 20:30 Ondansetron Inj 4 Mg/2 Ml Vial IV PUSH Q4H PRN Nausea Pantoprazole Sodium 40 mg 01/08/25 09:00 Pantoprazole 40 Mg Tablet PO DAILY [facility] Rosuvastatin Calcium 5 mg 01/08/25 09:00 Rosuvastatin 5 Mg Tablet PO DAILY [facility] Vitamin D 25 mcg 01/08/25 09:00 Cholecalciferol (Vitamin D3) 25 Mcg (1,000 Units) Tablet PO DAILY [facility] Radiology Results: ITS Impressions Abdomen/Pelvis CT 01/07/25 18:53 IMPRESSION: Asymmetric gynecomastia, larger on the left, recommend mammography and breast ultrasound for further evaluation. Moderate right hydronephrosis, possibly secondary to postsurgical or post therapeutic adhesions/scarring. An obstructing stone or mass is not detected. Apparent prior prostatectomy and proctectomy, correlate with surgical history. Soft tissue thickening with dystrophic calcifications in the presacral soft tissues, residual or recurrent mass not excluded. Possible sacral decubitus ulcer. Correlate with exam findings. Labs Labs: Laboratory Results - last 24 hr 01/07/25 01/07/25 01/08/25 15:13 16:02 06:29 WBC 8.8 7.7 RBC 4.45 L 4.26 L Hgb 12.8 L 12.1 L Hct 39.5 L 38.3 L MCV 88.8 89.9 MCH 28.8 28.4 MCHC 32.4 31.6 L RDW 15.0 H 15.2 H Plt Count 198 183 MPV 10.6 H 10.6 H Immature Gran % (Auto) 0.3 0.4 Neut % (Auto) 75.6 H 80.4 H Lymph % (Auto) 16.0 L 11.7 L [place] % (Auto) 7.6 6.8 Eos % (Auto) 0.2 0.3 Baso % (Auto) 0.3 0.4 Lymph # (Auto) 1.41 0.90 [place] # (Auto) 0.7 H 0.5 Eos # (Auto) 0.0 0.0 Baso # (Auto) 0.0 0.0 Abs Immat Gran (auto) 0.03 0.03 Absolute Neuts (auto) 6.6 6.2 Absolute Nucleated RBC 0.000 0.000 Nucleated RBC % 0.0 0.0 PT 13.4 INR 1.0 APTT 27.5 Sodium 142 141 Potassium 4.0 3.7 Chloride 107 109 H Carbon Dioxide 24 22 Anion Gap 11 10 BUN 17 15 Creatinine 0.93 0.85 Estim Creat Clear Calc 63 68 Estimated GFR > 60 > 60 Glucose 98 107 Calcium 9.2 9.1 Magnesium 2.2 Total Bilirubin 0.4 AST 22 ALT 17 Alkaline Phosphatase 126 Total Protein 7.8 Albumin 3.9 Urine Color Red H Urine Appearance Cloudy H Urine pH 6.0 Ur Specific [place] 1.011 Urine Protein 3+ H Urine Glucose (UA) Negative Urine Ketones Negative Ur Blood (Man) 3+ H Urine Nitrate Negative Urine Bilirubin Negative Urine Urobilinogen 0.2 Add Ur Microanalysis Reviewed Leukocyte Esterase Rfl 3+ H Urine RBC >100 H Urine WBC >100 H Ur Squamous Epith Cells None seen Urine Bacteria None seen Urine Casts 3-5 Quality VTE Prophylaxis VTE prophylaxis: mechanical ordered (SCD) Hospitalist MIPS Advance Care Plan I have confirmed that the patient's Advanced Care Plan is present, code status is documented, or surrogate decision maker is listed in patient medical record.: Yes Medication Reconciliation I have utilized all available resources to obtain, update and review the patients current medications (includes all prescriptions, OTC, herbals, cannabis, and nutritional supplements).: Yes
[2025-01-08] MEDS: ROSUVASTATIN 5 MG TABLET PO (09:16)
[2025-01-08] MEDS: CHOLECALCIFEROL (VITAMIN D3) 25 MCG (1,000 UNITS) TABLET PO (09:16)
[2025-01-08] MEDS: PANTOPRAZOLE 40 MG TABLET PO (09:16)
[2025-01-08] MEDS: FINASTERIDE 5 MG TABLET PO (09:16)
--- NOTE | 2025-01-08 11:44 | P.CONUR_ITS ---
Assessment and Plan Assessment and plan (1) Hydronephrosis, left: Code(s): N13.30 - Unspecified hydronephrosis Status: Acute (2) Gross hematuria: Code(s): R31.0 - Gross hematuria Status: Acute (3) Indwelling Almendarez catheter present: Code(s): Z97.8 - Presence of other specified devices Status: Acute Plan 69-year-old with history of radiation cystitis and urinary retention. Managed with Almendarez catheter. Presented with gross hematuria and clot retention, urine not clear on CBI. Left hydroureteronephrosis on CT scan --hematuria: Urine now clear. Wean CBI to off --left hydronephrosis: CT urogram ordered for tomorrow to assess. This may be due to passed stone, clot retention reflux, ureteral mass. Consider additional intervention if persistent hydronephrosis on repeat imaging --urine culture pending. Continue empiric antibiotics Urology Consult Note HPI Date Seen: 01/08/25 Requesting Physician: Trice Shay MD Primary Care Provider: Roderick Garcia, Consult Narrative Narrative: Jose Hall is a 69 year old male well-known to the urology service followed by Dr. Edu Tellez. The patient has a history of urinary retention managed with an indwelling Almendarez catheter with monthly catheter changes. Additionally patient does have a history of radiation therapy had intermittent gross hematuria likely due to radiation cystitis. Patient had bladder biopsy in 2018 and 2020 with benign pathology. The patient Almendarez catheter exchange earlier this week and since then hematuria. He presents to the emergency department last night with gross hematuria and clot retention. Patient was then started on continuous bladder irrigation and removal of significant clot burden according to the emergency department. At this time the patient was admitted with continuous bladder irrigation urine has been clear. Additional finding of left hydronephrosis noted on CT. [facility] Past Medical History Medical History (Updated 01/08/25 @ 11:51 by Lisa Burroughs MD) Hydronephrosis, left Hyperlipidemia Hypothyroidism Overactive bladder Kidney stones Indwelling Almendarez catheter present Colon cancer (2002) status post colon resection with colostomy and chemoradiation Surgical History Surgical History (Updated 01/08/25 @ 02:22 by Lynn Navarrete PA-C) History of cystoscopy History of partial colectomy (2002) with colostomy, for colon cancer Family History Family History Father Colon cancer Mother Dementia Social History Social History Social History: Surrogate medical decision maker: Sammy Hall, brother ([phone]). Code status: Full code. Smoking status: Never smoker Alcohol intake: never Substance use: never Do You Feel Safe in your Home?: Yes Lack of Transportation: No Lack of Food: Never True Current Housing: I Have Housing Concerned About Future Housing: No Difficulty Paying Gas/Electric Bills: No Difficulty Paying for Meds: No Currently Unemployed: No Education: Grade School Difficulty w/ Childcare or Family Care: No Additional living arrangements comments: Lives with brother in [place]. Spiritual care concerns: No Meds Home Medications and Allergies Home Medications ?Medication ?Instructions ?Recorded ?Confirmed ?Type ergocalciferol (vitamin D2) 1,000 1,000 mcg PO DAILY 01/07/25 01/07/25 History unit capsule finasteride 5 mg tablet 5 mg PO DAILY 01/07/25 01/07/25 History levothyroxine 25 mcg tablet 25 mcg PO DAILY 01/07/25 01/07/25 History pantoprazole 40 mg tablet,delayed 40 mg PO DAILY 01/07/25 01/07/25 History release rosuvastatin 5 mg tablet 5 mg PO DAILY 01/07/25 01/07/25 History Allergies Allergy/AdvReac Type Severity Reaction Status Date / Time No Known Allergies Allergy Verified 01/07/25 23:19 Vital Signs Vital Signs - 24 hr 01/07/25 14:21 01/07/25 16:19 01/07/25 18:26 Temperature Pulse Rate 89 90 84 Respiratory Rate 16 20 18 Blood Pressure 153/87 H 198/89 H 161/76 H Pulse Oximetry 96 98 96 Oxygen Delivery 01/07/25 19:45 01/07/25 22:20 01/07/25 22:51 Temperature 36.4 C L Pulse Rate 59 L 91 76 Respiratory Rate 17 17 17 Blood Pressure 173/87 H 167/78 H 176/82 H Pulse Oximetry 98 97 96 Oxygen Delivery 01/08/25 00:20 01/08/25 06:00 01/08/25 08:00 Temperature 36.3 C L Pulse Rate 81 Respiratory Rate 18 Blood Pressure 155/76 H 155/74 H Pulse Oximetry 97 Oxygen Delivery Room Air Exam 2 Narrative: Patient is awake and alert. No acute distress. Breathing is labored. Abdomen soft. There is a large parastomal hernia Almendarez catheter in place with clear urine on slow CBI Results Labs 01/08/25 06:29 01/08/25 06:29 Labs: Short CBC 01/07/25 01/08/25 Range/Units 16:02 06:29 WBC 8.8 7.7 (4.5-10.0) K/mm3 Hgb 12.8 L 12.1 L (14.0-18.0) g/dL Hct 39.5 L 38.3 L (42.0-52.0) % Plt Count 198 183 (150-375) k/mm3 BMP 01/07/25 01/08/25 16:02 06:29 Sodium 142 141 Potassium 4.0 3.7 Chloride 107 109 H Carbon Dioxide 24 22 BUN 17 15 Creatinine 0.93 0.85 Glucose 98 107 Calcium 9.2 9.1 Liver Function 01/07/25 Range/Units 16:02 Total Bilirubin 0.4 (0.2-1.3) mg/dL AST 22 (17-59) U/L ALT 17 (6-50) U/L Alkaline Phosphatase 126 (38-126) U/L Albumin 3.9 (3.5-5.1) g/dL Urine 01/07/25 Range/Units 15:13 Urine Color Red H (Yellow) Urine Appearance Cloudy H (Clear) Urine pH 6.0 (5.0-9.0) Ur Specific [place] 1.011 (1.001-1.035) Urine Protein 3+ H (Negative) mg/dL Urine Glucose (UA) Negative (Negative) mg/dL Imaging Radiologist's impression: Ordering Physician: Andra Soria PA-C Date of Service: 01/07/25 Procedure(s): CT abdomen pelvis wo con Accession Number(s): [id number] cc: Andra Soria PA-C; Radha, Roderick Andino MD~ EXAMINATION: CT abdomen pelvis wo con DATE: 01/07/2025 18:16 INDICATION: hematuria TECHNIQUE: Computed tomography (CT) of the abdomen and pelvis was performed without intravenous contrast. Automated exposure control and iterative reconstruction technique were employed. The dose-length product was 282.10 mGy- cm. COMPARISON: None. FINDINGS: Lower thorax: Asymmetric gynecomastia, larger and more masslike on the left. Bibasilar dependent scar/atelectasis. Liver: Normal. Biliary/Gallbladder: Gallbladder is normal. No bile duct dilation. Pancreas: No mass or duct dilation. Spleen: Normal. Adrenals:No mass. Kidneys: Multiple nonobstructing bilateral calcifications. Moderate right hydronephrosis, without obstructing stone or mass detected. GI tract: Left lower quadrant colostomy. No small or large bowel dilation. Appendix not visualized. Mesentery/Peritoneum: No ascites, mass, or free air. Retroperitoneum: No mass. Pelvis: The bladder is decompressed by Almendarez catheter. Likely status post prostatectomy and proctectomy. Presacral soft tissue thickening with dystrophic calcifications. Soft Tissues: Large left lower abdominal wall hernia containing the majority of large and small bowel. Soft tissue thickening and induration over the sacrum. Moderate sized, uncomplicated appearing fat-containing umbilical hernia. Bones: No acute osseous finding. IMPRESSION: Asymmetric gynecomastia, larger on the left, recommend mammography and breast ultrasound for further evaluation. Moderate right hydronephrosis, possibly secondary to postsurgical or post therapeutic adhesions/scarring. An obstructing stone or mass is not detected. Apparent prior prostatectomy and proctectomy, correlate with surgical history. Soft tissue thickening with dystrophic calcifications in the presacral soft tissues, residual or recurrent mass not excluded. Possible sacral decubitus ulcer. Correlate with exam findings. Reviewed, dictated and finalized at location K.
[2025-01-08 14:00] VITALS: BP 133/70; PULSE 76; RESP 16; TEMP 36.5; O2SAT 97
[2025-01-08 20:25] VITALS: BP 118/65; PULSE 70; RESP 16; TEMP 35.9; O2SAT 98
[2025-01-09 04:50] VITALS: BP 155/79; PULSE 65; RESP 16; TEMP 36.6; O2SAT 99
[2025-01-09 06:02] LABS: Hematocrit 37.4 % (42.0-52.0); Hemoglobin 11.9 g/dL (14.0-18.0); Mean Corpuscular HGB Conc 31.8 g/dl (32-36); Mean Corpuscular Hemoglobin 28.5 pg (26-34); Mean Corpuscular Volume 89.7 fl (80-100); Mean Platelet Volume 10.2 fl (7.4-10.4); Platelet Count Result 188 k/mm3 (150-375); Red Blood Count 4.17 M/mm3 (4.6-6.20); White Blood Count 8.2 K/mm3 (4.5-10.0)
[2025-01-09] MEDS: LEVOTHYROXINE SODIUM 25 MCG TABLET PO (06:35)
[2025-01-09 06:42] LABS: Anion Gap 11 mmol/L (4-12); Blood Urea Nitrogen 17 mg/dL (9-20); Calcium 9.4 mg/dL (8.4-10.2); Carbon Dioxide 22 mmol/L (22-30); Chloride 107 mmol/L (98-107); Estimated CRCL calculation 57 ml/min; Estimated Glomerular Filt Rate > 60; Glucose 103 mg/dL (65-110); Potassium 3.6 mmol/L (3.4-5.0); Sodium 140 mmol/L (137-145)
[2025-01-09 08:00] VITALS: PULSE 65; RESP 16; O2SAT 99
--- NOTE | 2025-01-09 13:08 | WPDUROPN2 ---
Progress Note: A&P Assessment and Plan (1) Hydronephrosis, left: Code(s): N13.30 - Unspecified hydronephrosis Status: Acute (2) Gross hematuria: Code(s): R31.0 - Gross hematuria Status: Resolved (3) Indwelling Almendarez catheter present: Code(s): Z97.8 - Presence of other specified devices Status: Chronic (4) Urinary tract infection: Qualifiers: Encounter type: initial encounter Indwelling urinary catheter type: indwelling urethral catheter Urinary tract infection type: catheter-associated UTI Qualified Code(s): T83.511A - Infection and inflammatory reaction due to indwelling urethral catheter, initial encounter; N39.0 - Urinary tract infection, site not specified Code(s): N39.0 - Urinary tract infection, site not specified Status: Ruled-out Plan 69-year-old male with history of radiation cystitis and 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 Presented with gross hematuria and clot retention requiring CBI. Left hydroureteronephrosis noted on CT imaging. --Renal function stable, Cr 1.04. Urine culture neg. No leukocytosis. Hgb 11.9, stable. --Hematuria: Urine urine clear yellow. Please plug inport on 3-way catheter. No need to exchange Almendarez prior to discharge. 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 Also with bilateral nonobstructing nephrolithiasis. Urology group to coordinate outpatient Lasix renal scan to be completed at [facility] prior to outpatient follow-up with Dr. Tellez scheduled for 01/27/2025. --No plan for inpatient surgical intervention. He is asymptomatic, denies pain. Urologically stable for discharge. Family/caregivers updated and agreeable to plan. Message sent to [employer] lead front end developer to assist with scheduling. Case discussed with Dr. Jeter. Subjective Subjective Date/Time Seen: 01/09/25 13:08 Interval history: NAEO; afebrile Urine remains clear yellow on trickle CBI (no blood or clots noted in tubing or bag) CT Urogram today shows persistent moderate left hydroureteronephrosis likely 2/2 radiation stricture Patient is comfortable, denies pain Exam Narrative: Patient is awake and alert. No acute distress. Breathing is unlabored. Abdomen soft. Almendarez catheter in place with clear yellow urine on trickle CBI Objective Data Vital Signs Vital Signs: Vital Signs - 24 hr 01/08/25 14:00 01/08/25 20:25 01/09/25 04:50 Temperature 97.7 F 96.7 F L 97.9 F Pulse Rate 76 70 65 Respiratory Rate 16 16 16 Blood Pressure 133/70 118/65 155/79 H Pulse Oximetry 97 98 99 Oxygen Delivery 01/09/25 08:00 Temperature Pulse Rate 65 Respiratory Rate 16 Blood Pressure Pulse Oximetry 99 Oxygen Delivery Room Air Intake/Output Intake/Output: Intake & Output 01/06/25 01/07/25 01/08/25 01/09/25 23:59 23:59 23:59 23:59 Intake Total 1050 410 Output Total 5150 2900 Balance -4100 -2490 Meds/Results Medications: Active Medications Generic Name Dose Route Start Last Admin Trade Name Freq PRN Reason Stop Dose Admin Acetaminophen 650 mg 01/07/25 20:30 Acetaminophen 325 Mg Tablet PO Q4H PRN Mild Pain (1-3) or Fever Dextrose 12.5 gm 01/07/25 20:30 Dextrose 50% 25 Gm/50 Ml Syringe IV PUSH PRN PRN Hypoglycemia Protocol Finasteride 5 mg 01/08/25 09:00 01/09/25 09:01 Finasteride 5 Mg Tablet PO Not Given DAILY SAM Glucagon 1 mg 01/07/25 20:30 Glucagon For Inj 1 Mg Vial IM PRN PRN Hypoglycemia Protocol Glucose 15 gm 01/07/25 20:30 Glucose Oral Gel 15 Gm Of Glucse In 37.5 Gm Tube PO PRN PRN Hypoglycemia Protocol Dextrose 1,000 mls @ 100 mls/hr 01/07/25 20:30 Dextrose 5% 1,000 Ml IVPB PRN PRN Hypoglycemia Protocol Ceftriaxone Sodium 1 gm in 50 mls @ 100 mls/hr 01/08/25 16:00 01/08/25 16:45 Rocephin 1 Gm/Ns 50 Ml IVPB Infused Q24H SAM Infusion Levothyroxine Sodium 25 mcg 01/08/25 06:30 01/09/25 06:35 Levothyroxine Sodium 25 Mcg Tablet PO 25 mcg DAILY@30 SAM Administration Ondansetron HCl 4 mg 01/07/25 20:30 Ondansetron Inj 4 Mg/2 Ml Vial IV PUSH Q4H PRN Nausea Pantoprazole Sodium 40 mg 01/08/25 09:00 01/09/25 09:01 Pantoprazole 40 Mg Tablet PO Not Given DAILY [facility] Rosuvastatin Calcium 5 mg 01/08/25 09:00 01/09/25 09:01 Rosuvastatin 5 Mg Tablet PO Not Given DAILY [facility] Vitamin D 25 mcg 01/08/25 09:00 01/09/25 09:01 Cholecalciferol (Vitamin D3) 25 Mcg (1,000 Units) Tablet PO Not Given DAILY [facility] Radiology Results: ITS Impressions Abdomen/Pelvis CT 01/09/25 11:41 IMPRESSION: 1. Moderate left hydroureteronephrosis which appears secondary to likely stricture at the distal left ureter or passed through a region of scarring with dystrophic calcifications in the presacral space extending to the base of the bladder which could be related to prior surgery or potentially radiation treatment of prior distal colectomy and prostatectomy. 2. Bilateral nonobstructing nephrolithiasis. 3. Left lower quadrant and colostomy with large parastomal hernia containing a significant amount of the bowel without obstruction. Labs Labs: Laboratory Results - last 24 hr 01/09/25 05:47 WBC 8.2 RBC 4.17 L Hgb 11.9 L Hct 37.4 L MCV 89.7 MCH 28.5 MCHC 31.8 L RDW 15.0 H Plt Count 188 MPV 10.2 Sodium 140 Potassium 3.6 Chloride 107 Carbon Dioxide 22 Anion Gap 11 BUN 17 Creatinine 1.04 Estim Creat Clear Calc 57 Estimated GFR > 60 Glucose 103 Calcium 9.4
[2025-01-09 14:00] VITALS: BP 139/84; PULSE 73; RESP 18; TEMP 36.6; O2SAT 96
--- NOTE | 2025-01-09 14:38 | P.DS_ITS ---
DS: Admitting Diagnosis Discharge Date 01/09/22 Admitting Diagnosis Hematuria DS: Discharge Diagnosis Discharge Diagnosis (1) Gross hematuria: Code(s): R31.0 - Gross hematuria Status: Resolved (2) Urinary tract infection: Qualifiers: Encounter type: initial encounter Indwelling urinary catheter type: indwelling urethral catheter Urinary tract infection type: catheter-associated UTI Qualified Code(s): T83.511A - Infection and inflammatory reaction due to indwelling urethral catheter, initial encounter; N39.0 - Urinary tract infection, site not specified Code(s): N39.0 - Urinary tract infection, site not specified Status: Ruled-out (3) Hydronephrosis, right: Code(s): N13.30 - Unspecified hydronephrosis Status: Acute (4) Indwelling Almendarez catheter present: Code(s): Z97.8 - Presence of other specified devices Status: Chronic (5) Elevated blood pressure reading: Code(s): R03.0 - Elevated blood-pressure reading, without diagnosis of hypertension Status: Acute (6) Gynecomastia, male: Code(s): N62 - Hypertrophy of breast Status: Acute (7) Hypothyroidism: Code(s): E03.9 - Hypothyroidism, unspecified Status: Acute DS: Summary Hospital Course Hospital Course: This is a 69-year-old male with history of urinary retention and chronic indwelling Almendarez catheter, colon cancer status post resection and chemoradiation in 2002, and intellectual disability who presented to the emergency department via private vehicle accompanied by his brother for evaluation of blood in urine. His Almendarez catheter was exchanged about 4 days ago and he has been passing small clots in his urine since that time. He has had similar episodes in the past and prior cystoscopy with biopsy in 2018 was benign and it was felt that the hematuria was likely due to IMRT changes and cath cystitis. In the ED: CT of the abdomen and pelvis showed moderate right hydronephrosis and asymmetric gynecomastia. He was started on CBI and received ceftriaxone 1 g for possible UTI. Urology consultation. UA was suspicious for UTI. Urine culture negative for infection. Rocephin discontinued. Patient did CBI for 2 days. CBI was discontinued after clots were cleared. He had a repeat CT of the abdomen. CT showed bilateral nonobstructing nephrolithiasis with left hydroureteronephrosis. They have ordered a outpatient follow-up with Dr. Georges back on 01/27/2025 at [facility] for a outpatient Lasix renal scan. He is not having any pain or discomfort. He is eating drinking appropriately. His labs are at baseline. He is stable for discharge. Time Spent with Patient Time attestation: Total time spent providing and/or coordinating discharge services: Exam Narrative: GENERAL: Comfortable, no acute distress HENMT: moist mucous membranes EYES: EOM intact b/l RESPIRATORY: clear to auscultation, no increased respiratory effort CARDIO: Regular rate and rhythm GI: Colostomy bag in place : Catheter draining yellow urine SKIN/EXTREMITIES: no rashes, no edema, no redness or tenderness DS: Data Data Completed and Pending Labs on day of discharge: Labs from last 24 hours 01/09/25 05:47 WBC 8.2 RBC 4.17 L Hgb 11.9 L Hct 37.4 L MCV 89.7 MCH 28.5 MCHC 31.8 L RDW 15.0 H Plt Count 188 MPV 10.2 Sodium 140 Potassium 3.6 Chloride 107 Carbon Dioxide 22 Anion Gap 11 BUN 17 Creatinine 1.04 Estim Creat Clear Calc 57 Estimated GFR > 60 Glucose 103 Calcium 9.4 Discharge Plan Discharge Consulting providers: Lisa Burroughs Discharging Clinician: Haley Tovar Patient Disposition: Home Activity: as tolerated Diet: regular Discharge Instructions: Discharge disposition: Take medications as prescribed Monitor blood pressures Avoid social areas, you wear a mask when in social settings Encouraged to continue with yearly vaccinations Return to the emergency department if he developed sudden shortness of breath, chest pain, nausea, vomiting, upset stomach or intractable diarrhea Return to the emergency department if you develop fever greater than 100.4 Follow-up with the primary care physician within 1-2 weeks Follow-up with urology as an outpatient. Scheduled follow-up on 01/27/[address] Tellez at [facility]. Thank you for choosing [facility] for your healthcare needs Patient Instructions: Antibiotic Form Patient Language: Georgian Stand Alone Forms: General Discharge Information Follow-up/Referrals: Edu Tellez MD [Physician] - Keep Reg. Scheduled Appt. (01/27/2025 10AM Please arrive 15 minutes prior to scheduled appointment time) Discharge Medications: Continued levothyroxine 25 mcg tablet 25 mcg PO DAILY finasteride 5 mg tablet 5 mg PO DAILY pantoprazole 40 mg tablet,delayed release (DR/EC) 40 mg PO DAILY rosuvastatin 5 mg tablet 5 mg PO DAILY ergocalciferol (vitamin D2) 1,000 unit capsule 1,000 mcg PO DAILY Date of admission: 01/08/25 08:05 Primary Care Provider: RadhaRoderick Admitting Provider: Dean Galindo Attending physician on admission: Trice Shay Condition: Stable Hospitalist MIPS Heart Failure (Exclusion) Patient has history of Heart Transplant or Left Ventricular Assistive Device?: No IF YES, STOP HERE Heart Failure (Qualifier) Patient has current or prior documentation of LVEF less than or equal to 40%, or mod/servere depressed LVSF?: No IF NO, STOP HERE
== END 2025-01-09 17:23 | disposition home or self-care (01) | DRG 696 ==
LOC: ANHED 20:43 → ANH3MEDSUR 22:54
PROVIDERS: Physician Assistant; Admitting Provider Internal Medicine; Emergency Provider Physician Assistant; PCP Internal Medicine; Visit Provider Internal Medicine Critical Care Medicine
DX: R31.0 Gross hematuria (principal); N13.2 Hydronephrosis with renal and ureteral calculous obstruction; R03.0 Elevated blood-pressure reading, without diagnosis of hypertension; N62 Hypertrophy of breast; E03.9 Hypothyroidism, unspecified; F79 Unspecified intellectual disabilities; E78.5 Hyperlipidemia, unspecified; N32.81 Overactive bladder; Z97.8 Presence of other specified devices; Z85.038 Personal history of other malignant neoplasm of large intestine; F41.9 Anxiety disorder, unspecified
CPT/HCPCS: 36415; 74176; 74178; 80048; 80053; 81001; 83735; 84443; 85025; 85027; 85610; 85730; 87086; 96365; 96375; 99285; A9270; G0378; J0696; J7030; Q9967

== ENCOUNTER 2025-06-26 12:39 | Inpatient (IN) | payer MEDICARE, SELFPAY ==
[2025-06-26] VITALS (8 sets, daily range): BP systolic 132–153; BP diastolic 83–95; PULSE 81–130; RESP 14–20; TEMP 35.6–36.4; O2SAT 95–100; BMI 23.5
--- NOTE | ~2025-06-26 | CT_ITS ---
EXAM/PROCEDURE: CT abdomen pelvis wo con HISTORY: abd pain COMPARISON: January 09, 2025 TECHNIQUE: Noncontrast CT of the abdomen and pelvis FINDINGS: And extremely large left-sided Spigelian hernia with several loops of herniated small and large bowel present but nonobstructive bowel gas pattern. No gross incarceration and no evidence strangulation. No free air free fluid or pneumatosis seen. Extensive scarring in the presacral region with dystrophic calcification and moderately severe left-sided hydroureteronephrosis similar to the previous exam. Bilateral kidney stones, nonobstructing on the right noted. No right-sided ureteral stones seen. Indwelling urethral catheter with nondistended urinary bladder. Portions of the catheter coiled within the urinary bladder. No AAA or grossly inflamed appendix. Gallbladder spleen pancreas stomach and adrenal glands appear stable. Mild bibasilar fibrotic and atelectatic changes in lung bases which are otherwise clear. Heart size normal. Trace pericardial effusion. Coronary artery calcification. Partially visualized bilateral gynecomastia, left greater than right. Diffuse degenerative changes throughout the bones. IMPRESSION: 1. Directed noncontrast exam demonstrating very large Spigelian hernia but nonobstructive bowel gas pattern. Moderately severe left-sided hydroureteronephrosis appears chronic, not significantly changed in appearance from January 09 exam. 2. Other findings as above. Reviewed, dictated and finalized at location A. RENTAL SUPERVISOR IMPRESSION: 1. Directed noncontrast exam demonstrating very large Spigelian hernia but nono bstructive bowel gas pattern. Moderately severe left-sided hydroureteronephrosi s appears chronic, not significantly changed in appearance from January 09 exam. 2. Other findings as above.
--- NOTE | 2025-06-26 14:06 | ED.MALEGU ---
HPI - Male Genitourinary General Chief complaint: Urogenital-Male Stated complaint: NEEDS A NEW CATHETER Time Seen by Provider: 06/26/25 13:39 History of Present Illness HPI Narrative: 69-year-old male history of radiation cystitis and chronic urinary retention managed with a Almendarez catheter presents to the ER 1 complaining of gross hematuria and clot retention. Patient does have hematuria noted to his urine collection device. Patient states home health staff was unable to change Almendarez catheter today. Related Data Home Medications ?Medication ?Instructions ?Recorded ?Confirmed ?Last Taken ?Type ergocalciferol (vitamin D2) 1,000 1,000 mcg PO DAILY 01/07/25 01/07/25 Unknown History unit capsule finasteride 5 mg tablet 5 mg PO DAILY 01/07/25 01/07/25 Unknown History levothyroxine 25 mcg tablet 25 mcg PO DAILY 01/07/25 01/07/25 Unknown History pantoprazole 40 mg tablet,delayed 40 mg PO DAILY 01/07/25 01/07/25 Unknown History release rosuvastatin 5 mg tablet 5 mg PO DAILY 01/07/25 01/07/25 Unknown History Allergies Allergy/AdvReac Type Severity Reaction Status Date / Time No Known Allergies Allergy Verified 06/26/25 12:44 Review of Systems Review of Systems: All systems reviewed & are unremarkable except as noted in HPI and below PMFSH Past Medical History Medical History Colostomy in place Intellectual disability Hydronephrosis, left Hyperlipidemia Hypothyroidism Overactive bladder Kidney stones Indwelling Almendarez catheter present Colon cancer (2002) status post colon resection with colostomy and chemoradiation Surgical History Surgical History History of cystoscopy History of partial colectomy (2002) with colostomy, for colon cancer Family History Family History Father Colon cancer Mother Dementia Social History Social History Social History: Surrogate medical decision maker: Sammy Hall, brother ([phone]). Code status: Full code. Smoking status: Never smoker Alcohol intake: never Substance use: never Lack of Transportation: No Lack of Food: Never True Current Housing: I Have Housing Concerned About Future Housing: No Difficulty Paying Gas/Electric Bills: No Difficulty Paying for Meds: No Currently Unemployed: No Education: Grade School Difficulty w/ Childcare or Family Care: No Additional living arrangements comments: Lives with brother in [place]. Spiritual care concerns: No Exam Const: Nutritional Appearance: obese Other: Chronically ill-appearing HENMT: Head: normal to inspection Chest: Chest palpation & inspection: normal inspection of the chest Resp: Effort & Inspection: normal respiratory effort Auscultation: clear to auscultation bilaterally Cardio: Rate: regular rate Rhythm: regular rhythm GI: GI Palp: Yes Tenderness to palpation present (GI) Other: Suprapubic tenderness : General: Yes no CVA tenderness Other: Urine collection device has hematuria and clots noted Urinary Catheter: Urinary Catheter: urine with clots Skin: General skin exam: normal color Rashes: no rashes Neuro: General: patient oriented x3 Psych: Mental Status: mental status grossly normal Affect: normal affect Course Vital Signs Vital signs: Vital Signs Temperature 35.6 C L 06/26/25 12:45 Pulse Rate 130 H 06/26/25 12:45 Respiratory Rate 20 06/26/25 12:45 Blood Pressure 153/93 H 06/26/25 12:45 Pulse Oximetry 100 06/26/25 12:45 Temperature 35.6 C L 06/26/25 12:45 Pulse Rate 93 06/26/25 18:15 Respiratory Rate 14 06/26/25 18:15 Blood Pressure 142/95 H 06/26/25 18:15 Pulse Oximetry 97 06/26/25 18:15 MDM Differential Diagnosis Differential Diagnosis: urinary obstruction,kidney stone, acute cystitis, blood clot, BPH, Lab Data 06/26/25 14:20 06/26/25 14:20 Labs: Lab Results 06/26/25 Range/Units 14:20 WBC 5.7 (4.5-10.0) K/mm3 RBC 4.35 L (4.6-6.20) M/mm3 Hgb 11.9 L (14.0-18.0) g/dL Hct 37.5 L (42.0-52.0) % MCV 86.2 (80-100) fl MCH 27.4 (26-34) pg MCHC 31.7 L (32-36) g/dl RDW 16.0 H (11.5-14.5) % Plt Count 261 (150-375) k/mm3 MPV 9.4 (7.4-10.4) fl Immature Gran % (Auto) 0.4 (0-0.5) % Neut % (Auto) 79.1 H (45.5-73.1) % Lymph % (Auto) 11.3 L (18.3-44.2) % [place] % (Auto) 8.3 (2.6-8.5) % Eos % (Auto) 0.5 (0-4.4) % Baso % (Auto) 0.4 (0.2-1.2) % Lymph # (Auto) 0.64 L (0.9-3.2) K/mm3 [place] # (Auto) 0.5 (0.1-0.6) K/mm3 Eos # (Auto) 0.0 (0-0.3) K/mm3 Baso # (Auto) 0.0 (0.0-0.1) K/mm3 Abs Immat Gran (auto) 0.02 (0.00-0.031) K/mm3 Absolute Neuts (auto) 4.5 (1.3-6.7) K/mm3 Absolute Nucleated RBC 0.000 (0.0-0.012) K/mm3 Nucleated RBC % 0.0 (0.0-0.2) % PT 13.4 (11.1-14.7) Seconds INR 1.0 Sodium 139 (137-145) mmol/L Potassium 3.5 (3.4-5.0) mmol/L Chloride 108 H (98-107) mmol/L Carbon Dioxide 25 (22-30) mmol/L Anion Gap 6 (4-12) mmol/L BUN 8 L D (9-20) mg/dL Creatinine 0.87 (0.7-1.3) mg/dL Estim Creat Clear Calc Not Reportable Estimated GFR > 60 (59 - ) Glucose 104 (65-110) mg/dL Calcium 9.2 (8.4-10.2) mg/dL Total Bilirubin 0.5 (0.2-1.3) mg/dL AST 21 (17-59) U/L ALT 14 (6-50) U/L Alkaline Phosphatase 116 (38-126) U/L Total Protein 7.9 (6.3-8.2) g/dL Albumin 3.8 (3.5-5.1) g/dL Imaging Data Radiologist's impression: ITS Impressions Abdomen/Pelvis CT 06/26/25 16:14 IMPRESSION: 1. Directed noncontrast exam demonstrating very large Spigelian hernia but nonobstructive bowel gas pattern. Moderately severe left-sided hydroureteronephrosis appears chronic, not significantly changed in appearance from January 09 exam. 2. Other findings as above. Discharge Plan Discharge Clinical Impression: Acute urinary obstruction Hematuria Qualifiers: Hematuria type: gross Qualified Code(s): R31.0 - Gross hematuria Patient Disposition: Still a Patient Condition: Stable Time of Disposition: 16:54
[2025-06-26 14:24] LABS: Hematocrit 37.5 % (42.0-52.0); Hemoglobin 11.9 g/dL (14.0-18.0); Immature Granulocyte Percent A 0.4 % (0-0.5); Lymphocytes Absolute Auto 0.64 K/mm3 (0.9-3.2); Mean Corpuscular HGB Conc 31.7 g/dl (32-36); Mean Corpuscular Hemoglobin 27.4 pg (26-34); Mean Corpuscular Volume 86.2 fl (80-100); Nucleated Red Blood Cells Absolute Auto 0.000 K/mm3 (0.0-0.012); Nucleated Red Blood Cells Perc 0.0 % (0.0-0.2); Platelet Count Result 261 k/mm3 (150-375); Red Blood Count 4.35 M/mm3 (4.6-6.20); White Blood Count 5.7 K/mm3 (4.5-10.0)
[2025-06-26 14:37] LABS: INR 1.0; Prothrombin Time 13.4 Seconds (11.1-14.7)
[2025-06-26 14:45] LABS: Alanine Aminotransferase 14 U/L (6-50); Albumin Level 3.8 g/dL (3.5-5.1); Alkaline Phosphatase 116 U/L (38-126); Anion Gap 6 mmol/L (4-12); Aspartate Amino Transferase 21 U/L (17-59); Bilirubin,Total 0.5 mg/dL (0.2-1.3); Blood Urea Nitrogen 8 mg/dL (9-20); Calcium 9.2 mg/dL (8.4-10.2); Carbon Dioxide 25 mmol/L (22-30); Chloride 108 mmol/L (98-107); Estimated Glomerular Filt Rate > 60; Glucose 104 mg/dL (65-110); Potassium 3.5 mmol/L (3.4-5.0); Sodium 139 mmol/L (137-145); Total Protein 7.9 g/dL (6.3-8.2)
[2025-06-26] MEDS: LIDOCAINE 2% GEL UROJET 10 ML PKG (15:40)
--- NOTE | 2025-06-26 16:35 | WPDURCON ---
Assessment and Plan Assessment and plan (1) Gross hematuria: Code(s): R31.0 - Gross hematuria Status: Resolved Assessment and Plan: - Likely 2/2 radiation cystitis and catheter use with possible UTI - Start on CBI to clear urine - Initially with minimal output through catheter on exam and preparing for irrigation, however, retracted catheter as it is seen coiled in bladder on CT and subsequently draining clear yellow urine - Did attempt to flush as irrigation set up was available and with minimal irrigation pt effluxing urine around Almendarez catheter - Will start CBI at slow rate and assess how pt bladder tolerates filling - Hgb stable; pt not on blood thinners (2) Acute urinary obstruction: Code(s): N13.9 - Obstructive and reflux uropathy, unspecified Status: Acute Assessment and Plan: - Almendarez catheter exchanged with 3-way - Draining pink urine - Uses Almendarez chronically, maintain on discharge (3) Urinary tract infection: Qualifiers: Encounter type: initial encounter Indwelling urinary catheter type: indwelling urethral catheter Urinary tract infection type: catheter-associated UTI Qualified Code(s): T83.511A - Infection and inflammatory reaction due to indwelling urethral catheter, initial encounter; N39.0 - Urinary tract infection, site not specified Code(s): N39.0 - Urinary tract infection, site not specified Status: Ruled-out Assessment and Plan: - UA pending with reflex culture in place - Concern for UTI, cover with broad spectrum Abx - Tailor on UCx results (4) Hydronephrosis, left: Code(s): N13.30 - Unspecified hydronephrosis Status: Acute Assessment and Plan: - Chronic Left hydro stable - Creatinine stable - Can be addressed in outpatient follow up Plan No acute surgical interevention recommended Urology Consult Note HPI Date Seen: 06/26/25 Primary Care Provider: Roderick Garcia, Consult Narrative Narrative: Pt is a 69 year old M with radiation cystitis and chronic urinary retention managed with a Almendarez catheter presented to the ED with gross hematuria. Pt home health states they were unable to remove the Almendarez catheter at home and pt with significant gross hematuria with small clots. Pt family member providing Hx at bedside. Denies any recent issues with Almendarez although does note several UTIs throughout the last several months. Flushes Almendarez regularly at home without issue. Not on blood thinners. Review of Systems Review of Systems: All systems reviewed & are unremarkable except as noted in HPI and below PMFSH Past Medical History Medical History Hydronephrosis, left Hyperlipidemia Hypothyroidism Overactive bladder Kidney stones Indwelling Almendarez catheter present Colon cancer (2002) status post colon resection with colostomy and chemoradiation Surgical History Surgical History History of cystoscopy History of partial colectomy (2002) with colostomy, for colon cancer Family History Family History Father Colon cancer Mother Dementia Social History Social History Social History: Surrogate medical decision maker: Sammy Hall, brother ([phone]). Code status: Full code. Smoking status: Never smoker Alcohol intake: never Substance use: never Lack of Transportation: No Lack of Food: Never True Current Housing: I Have Housing Concerned About Future Housing: No Difficulty Paying Gas/Electric Bills: No Difficulty Paying for Meds: No Currently Unemployed: No Education: Grade School Difficulty w/ Childcare or Family Care: No Additional living arrangements comments: Lives with brother in [place]. Spiritual care concerns: No Meds Home Medications and Allergies Home Medications ?Medication ?Instructions ?Recorded ?Confirmed ?Type ergocalciferol (vitamin D2) 1,000 1,000 mcg PO DAILY 01/07/25 01/07/25 History unit capsule finasteride 5 mg tablet 5 mg PO DAILY 01/07/25 01/07/25 History levothyroxine 25 mcg tablet 25 mcg PO DAILY 01/07/25 01/07/25 History pantoprazole 40 mg tablet,delayed 40 mg PO DAILY 01/07/25 01/07/25 History release rosuvastatin 5 mg tablet 5 mg PO DAILY 01/07/25 01/07/25 History Allergies Allergy/AdvReac Type Severity Reaction Status Date / Time No Known Allergies Allergy Verified 06/26/25 12:44 Vital Signs Vital Signs - 24 hr 06/26/25 12:45 Temperature 35.6 C L Pulse Rate 130 H Respiratory Rate 20 Blood Pressure 153/93 H Pulse Oximetry 100 Exam Const: General: comfortable and no acute distress Eyes: General: appearance normal, both eyes and all related structures Resp: Effort & Inspection: normal respiratory effort Urinary Catheter: Urinary Catheter: patent and draining and urine red Skin: General skin exam: normal color Neuro: Speech: normal speech Psych: Affect: normal affect Results Labs 06/26/25 14:20 06/26/25 14:20 Labs: Short CBC 06/26/25 Range/Units 14:20 WBC 5.7 (4.5-10.0) K/mm3 Hgb 11.9 L (14.0-18.0) g/dL Hct 37.5 L (42.0-52.0) % Plt Count 261 (150-375) k/mm3 BMP 06/26/25 14:20 Sodium 139 Potassium 3.5 Chloride 108 H Carbon Dioxide 25 BUN 8 L D Creatinine 0.87 Glucose 104 Calcium 9.2 Liver Function 06/26/25 Range/Units 14:20 Total Bilirubin 0.5 (0.2-1.3) mg/dL AST 21 (17-59) U/L ALT 14 (6-50) U/L Alkaline Phosphatase 116 (38-126) U/L Albumin 3.8 (3.5-5.1) g/dL
[2025-06-26] MEDS: WATER FOR IRRIGATION, STERILE 500 ML BOTTLE ×2 (17:00)
--- NOTE | 2025-06-26 17:35 | P.HP_ITS ---
H&P: HPI History of Present Illness Date/Time: 06/26/25 17:35 Chief Complaint: Needing Salinas Exchanged, Hematuria Narrative: 69 y/o M with PMH of HLD, hypothyroidism, OAB, chronic indwelling salinas due to radiation cystitis/chronic urinary retention, kidney stones, and colon cancer s/p colon resection/chemoradiation presents here with need for Salinas exchange and hematuria. The patient presents here from home on 06/26 for further evaluation of inability to exchange Salinas at home via home health and hematuria. HPI obtained through chart review and the patient. Patient has home health at home who was unable to remove his Salinas catheter for replacement today (06/26). Patient has also had significant gross hematuria with small clots. He reports this started 1 week ago, however he is unreliable historian (A/O to self/place but not able to provide much situational history). He was previously able to flush his Salinas regularly without issue. Has had multiple UTIs within the last several months. Not currently on anticoagulation. Patient has chronic Salinas catheter in place due to radiation cystitis/chronic urinary retention post treatment of his previous colon cancer. He currently denies suprapubic pain, abdominal pain, nausea, vomiting, fever, chills, body aches, fatigue, or general malaise. Initial VS at presentation: 96? F, HR 130, R 20, 153/93, and 100% on RA. HR now 104. ED workup showed: No leukocytosis, hemoglobin 11.9, normal coags, creatinine 0.87 and GFR >60, no significant electrolyte derangements. CT of the abdomen/pelvis showed a very large spigelian hernia but nonobstructive bowel gas pattern, moderately severe left-sided hydro ureteral nephrosis appearing chronic and not significantly changed compared to prior exam on January 09. Portions of the urinary catheter are coiled within the urinary bladder. Review of Systems Review of Systems: All systems reviewed & are unremarkable except as noted in HPI and below (Limited, poor historian) FOR[facility]LY [facility], [facility] Past Medical History Medical History Colostomy in place Intellectual disability Hydronephrosis, left Hyperlipidemia Hypothyroidism Overactive bladder Kidney stones Indwelling Salinas catheter present Colon cancer (2002) status post colon resection with colostomy and chemoradiation Surgical History Surgical History History of cystoscopy History of partial colectomy (2002) with colostomy, for colon cancer Family History Family History Father Colon cancer Mother Dementia Social History Social History Social History: Surrogate medical decision maker: Sammy Hall, brother ([phone]). Code status: Full code. Smoking status: Never smoker Alcohol intake: never Substance use: never Lack of Transportation: No Lack of Food: Never True Current Housing: I Have Housing Concerned About Future Housing: No Difficulty Paying Gas/Electric Bills: No Difficulty Paying for Meds: No Currently Unemployed: No Education: Grade School Difficulty w/ Childcare or Family Care: No Additional living arrangements comments: Lives with brother in [place]. Spiritual care concerns: No Meds Home Medications and Allergies Home Medications ?Medication ?Instructions ?Recorded ?Confirmed ?Type ergocalciferol (vitamin D2) 1,000 1,000 mcg PO DAILY 0 01/07/25 06/26/25 History unit capsule finasteride 5 mg tablet 5 mg PO DAILY 01/07/2506/26 History levothyroxine 25 mcg tablet 25 mcg PO DAILY 01/07/25 1 08/27/24 History rosuvastatin 5 mg tablet 5 mg PO DAILY 01/07/2506/26 History lidocaine HCl 2 % mucosal jelly in 1 applic intra-uret hral .every 30 06/26/25 06/26/25 History applicator (Glydo) days Allergies Allergy/AdvReac Type Severity Reaction Status Date / Time No Known Allergies Allergy Verified 06/26/25 19:03 Vital Signs Vital Signs - 24 hr 06/26/25 12:45 06/26/25 14:15 06/26/25 14:16 Temperature 96.0 F L Pulse Rate 130 H 93 94 Respiratory Rate 20 14 19 Blood Pressure 153/93 H 150/93 H Pulse Oximetry 100 95 96 06/26/25 15:01 06/26/25 15:47 Temperature Pulse Rate 100 104 H Respiratory Rate 14 14 Blood Pressure 140/88 Pulse Oximetry 97 97 Exam Const: General: comfortable and no acute distress Other: , male, elderly, nontoxic appearance HENMT: Face/Nose/Sinus: Normal nares present Mouth: Yes dry mucous membranes Eyes: General: appearance normal, both eyes and all related structures Sclera: sclerae normal Pupils: Equal, round and reactive pupils present EOM: EOMs intact bilaterally Resp: Effort & Inspection: normal respiratory effort Auscultation: clear to auscultation bilaterally Cardio: Rate: regular rate Rhythm: regular rhythm Other: S1-S2 present without murmur, rub, ectopy GI: Other: Abdomen soft, nondistended, nontender. Normoactive bowel sounds in all quadrants. Colostomy present. Stoma pink and moist with no areas of breakdown noted. Firm small stool in ostomy bag. Urinary Catheter: Urinary Catheter: patent and draining (Urine with heavy sediment intermittently, pink-tinged) Skin: General skin exam: normal color and no rashes or lesions noted Other: Small pink area to coccyx with no skin breakdown. Neuro: Speech: normal speech Motor exam (neuro): 5/5 motor strength present throughout Sensory Exam: normal sensation Other: A&O to self and place. Provided incorrect year and poor situational history given. Intellectual disability. Extrem: General: normal to inspection Psych: Mental Status: mental status grossly normal Affect: normal affect Other: Poor insight and judgment, very pleasant. Results Labs Labs: Short CBC 06/26/25 Range/Units 14:20 WBC 5.7 (4.5-10.0) K/mm3 Hgb 11.9 L (14.0-18.0) g/dL Hct 37.5 L (42.0-52.0) % Plt Count 261 (150-375) k/mm3 [facility] 06/26/25 14:20 Sodium 139 Potassium 3.5 Chloride 108 H Carbon Dioxide 25 BUN 8 L D Creatinine 0.87 Glucose 104 Calcium 9.2 Liver Function 06/26/25 Range/Units 14:20 Total Bilirubin 0.5 (0.2-1.3) mg/dL AST 21 (17-59) U/L ALT 14 (6-50) U/L Alkaline Phosphatase 116 (38-126) U/L Albumin 3.8 (3.5-5.1) g/dL Quality VTE Prophylaxis VTE prophylaxis: mechanical ordered Assessment and Plan Assessment and plan (1) Acute urinary obstruction: Code(s): N13.9 - Obstructive and reflux uropathy, unspecified Status: Acute Assessment and Plan: Patient presents here with need for Salinas change, home health unable to perform, and he has gross hematuria with small clots. Chronic Salinas secondary to radiation cystitis/chronic urinary obstruction post treatment of colon cancer. Urology consulted, attributing symptoms to radiation cystitis/catheter use with possible complicated UTI. CT initially showed the Salinas catheter was currently in the bladder, catheter able to be retracted and subsequently draining clear/yellow urine. Salinas was able to be exchanged on 06/26, [address] for CBI. Despite presence of hematuria, hemoglobin currently 11.9 and was previously 11.9 in December of 2024. Stable. - CBI placed on 06/26, continue. Continue Salinas at discharge. - monitor hemoglobin, transfuse if less than 7 - possible UTI component, started on broad-spectrum antibiotics. UA not performed prior to abx initiation, lab ordered. Awaiting results. Previous micro reviewed, no recent cultures available. Last cultures in system from 2022. Started on ceftriaxone on 06/26, continued inpatient. - monitor renal function - urology consulted, see note - IV fluids: LR 100 mL/hr x1L - continue Proscar (2) Hematuria: Qualifiers: Hematuria type: gross Qualified Code(s): R31.0 - Gross hematuria Code(s): R31.9 - Hematuria, unspecified Status: Acute Assessment and Plan: - see above (3) Indwelling Salinas catheter present: Code(s): Z97.8 - Presence of other specified devices Status: Chronic Assessment and Plan: - see above (4) Hypothyroidism: Qualifiers: Hypothyroidism type: unspecified Qualified Code(s): E03.9 - Hypothyroid ism, unspecified Code(s): E03.9 - Hypothyroidism, unspecified Status: Chronic Assessment and Plan: Patient has history of hyperthyroidism. TSH last checked in December of 2024, within normal limits at 2.17. - continue home medication: Synthroid 25 mcg daily (5) Hyperlipidemia: Qualifiers: Hyperlipidemia type: unspecified Qualified Code(s): E78.5 - Hyperlipidemia, unspecified Code(s): E78.5 - Hyperlipidemia, unspecified Status: Chronic Assessment and Plan: - continue home medication: Receives statin 5 mg daily Plan Diet: regular GI Prophylaxis: n/a DVT Prophylaxis: SCDs IV fluids: LR 100 mL/hr x1L Lines/Tubes: pIV, salinas/CBI Code Status: full code Prior Studies I have reviewed the following patient records and this information was taken into consideration when formulating the assessment and plan.: previous labs, previous ER visits, previous hospitalizations and previous clinic visits Time Spent with Patient Time with patient: less than 45 minutes Hospitalist MIPS Advance Care Plan I have confirmed that the patient's Advanced Care Plan is present, code status is documented, or surrogate decision maker is listed in patient medical record.: Yes Medication Reconciliation I have utilized all available resources to obtain, update and review the patients current medications (includes all prescriptions, OTC, herbals, cannabis, and nutritional supplements).: Yes
[2025-06-26] MEDS: cefTRIAXone 1 GM in SODIUM CHLORIDE 0.9% IV 50 ML 100 ML IVPB (18:12)
[2025-06-26] MEDS: LACTATED RINGERS 1,000 ML 100 ML IV CONT (18:15)
[2025-06-26] MEDS: ONDANSETRON INJ 4 MG/2 ML VIAL IV PUSH (18:19)
--- NOTE | 2025-06-26 18:45 | ADMGEN ---
This patient, Jose Hall, was admitted to Medical Room 241-01. Patient/family oriented to hospital policies and general routines including ID bracelet, bed and alarms, visiting hours, pain management, procedures, bathroom and other care routines, personal items, smoking policy, room service/diet, and visiting hours. Information on how to activate the Rapid Response Team has been discussed. Patient/Family are encouraged to report perceived risks to care and to ask questions if they do not understand what they are told or what they should do.
[2025-06-26 20:51] LABS: Add Urine Microscopic? YES
[2025-06-26 20:52] LABS: Appearance Urine Turbid (Clear); Specific Grav Ur 1.020 (1.001-1.035)
[2025-06-26 20:53] LABS: Glucose Urine UA Negative (Negative); Nitrate Urine Negative (Negative)
[2025-06-26 20:54] LABS: Leukocyte Esterase Ur 2+ LEU/UL (Negative)
[2025-06-27 05:09] LABS: Hematocrit 34.0 % (42.0-52.0); Hemoglobin 10.3 g/dL (14.0-18.0); Immature Granulocyte Percent A 0.3 % (0-0.5); Lymphocytes Absolute Auto 1.18 K/mm3 (0.9-3.2); Mean Corpuscular HGB Conc 30.3 g/dl (32-36); Mean Corpuscular Hemoglobin 27.1 pg (26-34); Mean Corpuscular Volume 89.5 fl (80-100); Nucleated Red Blood Cells Absolute Auto 0.000 K/mm3 (0.0-0.012); Nucleated Red Blood Cells Perc 0.0 % (0.0-0.2); Platelet Count Result 249 k/mm3 (150-375); Red Blood Count 3.80 M/mm3 (4.6-6.20); White Blood Count 5.8 K/mm3 (4.5-10.0)
[2025-06-27 05:30] LABS: Anion Gap 4 mmol/L (4-12); Blood Urea Nitrogen 10 mg/dL (9-20); Calcium 8.7 mg/dL (8.4-10.2); Carbon Dioxide 24 mmol/L (22-30); Chloride 107 mmol/L (98-107); Estimated CRCL calculation 63 ml/min; Estimated Glomerular Filt Rate > 60; Glucose 94 mg/dL (65-110); Potassium 3.6 mmol/L (3.4-5.0); Sodium 135 mmol/L (137-145)
[2025-06-27] MEDS: LEVOTHYROXINE SODIUM 25 MCG TABLET PO (05:50)
[2025-06-27 06:00] VITALS: BP 127/51; PULSE 63; RESP 16; TEMP 36.3; O2SAT 95
--- NOTE | 2025-06-27 07:04 | P.PNIM_ITS ---
Assessment and Plan Assessment and Plan (1) Acute urinary obstruction: Code(s): N13.9 - Obstructive and reflux uropathy, unspecified Status: Acute Assessment and Plan: Patient presents here with need for Salinas change, home health unable to perform, and he has gross hematuria with small clots. Chronic Salinas secondary to radiation cystitis/chronic urinary obstruction post treatment of colon cancer. Urology consulted, attributing symptoms to radiation cystitis/catheter use with possible complicated UTI. CT initially showed the Salinas catheter was currently in the bladder, catheter able to be retracted and subsequently draining clear/yellow urine. Salinas was able to be exchanged on 06/26, [address] for CBI. Despite presence of hematuria, hemoglobin currently 11.9 and was previously 11.9 in December of 2024. Stable. - CBI placed on 06/26, continue. Continue Salinas at discharge. - monitor hemoglobin, transfuse if less than 7. Hgb 11.9-->10.3, but received IV fluids and no current signs of bleeding. - possible UTI component. Started on ceftriaxone on 06/26, continued inpatient. - monitor renal function - urology consulted - clamped CBI. Monitor for recurrence. - continue Proscar (2) Hematuria: Qualifiers: Hematuria type: gross Qualified Code(s): R31.0 - Gross hematuria Code(s): R31.9 - Hematuria, unspecified Status: Acute Assessment and Plan: - see above (3) Urinary tract infection: Qualifiers: Encounter type: initial encounter Indwelling urinary catheter type: indwelling urethral catheter Urinary tract infection type: catheter-associated UTI Qualified Code(s): T83.511A - Infection and inflammatory reaction due to indwelling urethral catheter, initial encounter; N39.0 - Urinary tract infection, site not specified Code(s): N39.0 - Urinary tract infection, site not specified Status: Ruled-out Assessment and Plan: - UA with 2+ LE, >100 WBC, 2+ bacteria - continue IV Rocephin - urine culture pending (4) Indwelling Salinas catheter present: Code(s): Z97.8 - Presence of other specified devices Status: Chronic Assessment and Plan: - see above (5) Hypothyroidism: Qualifiers: Hypothyroidism type: unspecified Qualified Code(s): E03.9 - Hypothyroidism, unspecified Code(s): E03.9 - Hypothyroidism, unspecified Status: Chronic Assessment and Plan: - continue home Synthroid (6) Hyperlipidemia: Qualifiers: Hyperlipidemia type: unspecified Qualified Code(s): E78.5 - Hyperlipidemia, unspecified Code(s): E78.5 - Hyperlipidemia, unspecified Status: Chronic Assessment and Plan: - continue home statin Plan Code status: full code DVT prophylaxis: SCDs Dispo: likely home tomorrow Medical Record Review I have reviewed the following patient records and this information was taken into consideration when formulating the assessment and plan.: previous labs Subjective Date/time seen: 06/27/25 07:04 Interval history: Patient seen and examined at bedside. Brother at bedside assists with history. Patient denies pain this AM, urine running clear. Family feels he is near his baseline. CBI clamped per urology. Review of Systems 2 Review of Systems: All systems reviewed & are unremarkable except as noted in HPI and below Exam Narrative: General: NAD Eyes: EOMI ENT: neck supple Cardiovascular: Regular rate and rhythm Respiratory: Clear to auscultation, respirations even and unlabored on RA Gastrointestinal: Soft, non tender Genitourinary: no suprapubic tenderness, salinas draining clear urine Musculoskeletal: No edema Skin: warm, dry Neuro: Alert. Psych: Mood appropriate Objective Data Vital Signs Vital Signs: Vital Signs - 24 hr 06/26/25 12:45 06/26/25 14:15 06/26/25 14:16 Temperature 96.0 F L Pulse Rate 130 H 93 94 Respiratory Rate 20 14 19 Blood Pressure 153/93 H 150/93 H Pulse Oximetry 100 95 96 Oxygen Delivery 06/26/25 15:01 06/26/25 15:47 06/26/25 17:17 Temperature Pulse Rate 100 104 H 90 Respiratory Rate 14 14 14 Blood Pressure 140/88 132/86 Pulse Oximetry 97 97 96 Oxygen Delivery 06/26/25 18:15 06/26/25 20:00 06/26/25 22:00 Temperature 97.5 F L Pulse Rate 93 81 Respiratory Rate 14 16 Blood Pressure 142/95 H 146/83 H Pulse Oximetry 97 97 Oxygen Delivery Room Air Intake/Output Intake/Output: Intake & Output 06/24/25 06/25/25 06/26/25 06/27/25 23:59 23:59 23:59 23:59 Intake Total 240 1000 Balance 240 1000 Meds/Results Medications: Active Medications Generic Name Dose Route Start Last Admin Trade Name Freq PRN Reason Stop Dose Admin Acetaminophen 650 mg 06/26/25 16:54 Acetaminophen 325 Mg Tablet PO Q4H PRN Mild Pain (1-3) or Fever Hydrocodone Bitart/Acetaminophen 1 tab 06/26/25 17:49 Hydrocodone/Acetaminophen (*Crx) 5-325 Mg Tablet PO Q6H PRN Pain Rated 4-6 Calcium Carbonate 200 mg 06/26/25 17:48 Calcium Carbonate (Tums) 500 Mg (200 Mg Elemental) PO Q6H PRN Indigestion Docusate Sodium 100 mg 06/26/25 17:48 Docusate Sodium 100 Mg Capsule PO Q12H PRN Constipation Finasteride 5 mg 06/27/25 09:00 Finasteride 5 Mg Tablet PO DAILY [facility] Ceftriaxone Sodium 1 gm/ 50 mls @ 100 mls/hr 06/27/25 17:00 Sodium Chloride IVPB Q24H [facility] Levothyroxine Sodium 25 mcg 06/27/25 06:30 06/27/25 05:50 Levothyroxine Sodium 25 Mcg Tablet PO 25 mcg DAILY@0630 [facility] Administration Ondansetron HCl 4 mg 06/26/25 16:54 06/26/25 18:19 Ondansetron Inj 4 Mg/2 Ml Vial IV PUSH 4 mg Q4H PRN Administration Nausea Rosuvastatin Calcium 5 mg 06/27/25 09:00 Rosuvastatin 5 Mg Tablet PO DAILY [facility] Vitamin D 25 mcg 06/27/25 09:00 Cholecalciferol (Vitamin D3) 25 Mcg (1,000 Units) Tablet PO DAILY [facility] Radiology Results: ITS Impressions Abdomen/Pelvis CT 06/26/25 16:14 IMPRESSION: 1. Directed noncontrast exam demonstrating very large Spigelian hernia but nonobstructive bowel gas pattern. Moderately severe left-sided hydroureteronephrosis appears chronic, not significantly changed in appearance from January 09 exam. 2. Other findings as above. Labs Labs: Laboratory Results - last 24 hr 06/26/25 06/26/25 06/27/25 14:20 20:07 04:39 WBC 5.7 5.8 RBC 4.35 L 3.80 L Hgb 11.9 L 10.3 L Hct 37.5 L 34.0 L MCV 86.2 89.5 MCH 27.4 27.1 MCHC 31.7 L 30.3 L RDW 16.0 H 16.3 H Plt Count 261 249 MPV 9.4 10.0 Immature Gran % (Auto) 0.4 0.3 Neut % (Auto) 79.1 H 64.5 Lymph % (Auto) 11.3 L 20.5 Sampson % (Auto) 8.3 12.1 H Eos % (Auto) 0.5 2.1 Baso % (Auto) 0.4 0.5 Lymph # (Auto) 0.64 L 1.18 Sampson # (Auto) 0.5 0.7 H Eos # (Auto) 0.0 0.1 Baso # (Auto) 0.0 0.0 Abs Immat Gran (auto) 0.02 0.02 Absolute Neuts (auto) 4.5 3.7 Absolute Nucleated RBC 0.000 0.000 Nucleated RBC % 0.0 0.0 PT 13.4 INR 1.0 Sodium 139 135 L Potassium 3.5 3.6 Chloride 108 H 107 Carbon Dioxide 25 24 Anion Gap 6 4 BUN 8 L D 10 Creatinine 0.87 0.93 Estim Creat Clear Calc Not Reportable 63 Estimated GFR > 60 > 60 Glucose 104 94 Calcium 9.2 8.7 Total Bilirubin 0.5 AST 21 ALT 14 Alkaline Phosphatase 116 Total Protein 7.9 Albumin 3.8 Urine Color Red H Urine Appearance Turbid H Urine pH 7.0 Ur Specific [place] 1.020 Urine Protein 3+ H Urine Glucose (UA) Negative Urine Ketones 1+ H Ur Blood (Man) 4+ H Urine Nitrate Negative Urine Bilirubin Negative Urine Urobilinogen 1.0 Leukocyte Esterase Rfl 2+ H Urine RBC >100 H Urine WBC >100 Ur Squamous Epith Cells Few Urine Bacteria 2+ H
[2025-06-27 08:00] VITALS: RESP 16; O2SAT 95
[2025-06-27] MEDS: FINASTERIDE 5 MG TABLET PO (08:31)
[2025-06-27] MEDS: CHOLECALCIFEROL (VITAMIN D3) 25 MCG (1,000 UNITS) TABLET PO (08:31)
[2025-06-27] MEDS: ROSUVASTATIN 5 MG TABLET PO (08:31)
--- NOTE | 2025-06-27 12:56 | WPDUROPN2 ---
Progress Note: A&P Assessment and Plan (1) Hematuria: Qualifiers: Hematuria type: gross Qualified Code(s): R31.0 - Gross hematuria Code(s): R31.9 - Hematuria, unspecified Status: Acute Assessment and Plan: - Urine completely clear this morning - Clamped CBI and will assess for any return of gross hematuria (2) Indwelling Almendarez catheter present: Code(s): Z97.8 - Presence of other specified devices Status: Chronic Assessment and Plan: - Almendarez catheter exchanged with 3-way - Draining pink urine - Uses Almendarez chronically, maintain on discharge (3) Urinary tract infection: Qualifiers: Encounter type: initial encounter Indwelling urinary catheter type: indwelling urethral catheter Urinary tract infection type: catheter-associated UTI Qualified Code(s): T83.511A - Infection and inflammatory reaction due to indwelling urethral catheter, initial encounter; N39.0 - Urinary tract infection, site not specified Code(s): N39.0 - Urinary tract infection, site not specified Status: Ruled-out Assessment and Plan: - UA pending with reflex culture in place - Concern for UTI, cover with broad spectrum Abx - Tailor on UCx results (4) Hydronephrosis, left: Code(s): N13.30 - Unspecified hydronephrosis Status: Acute Assessment and Plan: - Chronic Left hydro stable - Creatinine stable - Can be addressed in outpatient follow up Subjective Subjective Date/Time Seen: 06/27/25 12:56 Interval history: NAEO; resting comfortably in bed. Urine clear on CBI. Exam Const: General: comfortable and no acute distress Eyes: General: appearance normal, both eyes and all related structures Resp: Effort & Inspection: normal respiratory effort Urinary Catheter: Urinary Catheter: patent and draining and urine clear Skin: General skin exam: normal color Neuro: Speech: normal speech Psych: Affect: normal affect Objective Data Vital Signs Vital Signs: Vital Signs - 24 hr 06/26/25 14:15 06/26/25 14:16 06/26/25 15:01 Temperature Pulse Rate 93 94 100 Respiratory Rate 14 19 14 Blood Pressure 150/93 H 140/88 Pulse Oximetry 95 96 97 Oxygen Delivery 06/26/25 15:47 06/26/25 17:17 06/26/25 18:15 Temperature Pulse Rate 104 H 90 93 Respiratory Rate 14 14 14 Blood Pressure 132/86 142/95 H Pulse Oximetry 97 96 97 Oxygen Delivery 06/26/25 20:00 06/26/25 22:00 06/27/25 06:00 Temperature 36.4 C L 36.3 C L Pulse Rate 81 63 Respiratory Rate 16 16 Blood Pressure 146/83 H 127/51 L Pulse Oximetry 97 95 Oxygen Delivery Room Air 06/27/25 08:00 Temperature Pulse Rate Respiratory Rate 16 Blood Pressure Pulse Oximetry 95 Oxygen Delivery Room Air Intake/Output Intake/Output: Intake & Output 06/24/25 06/25/25 06/26/25 06/27/25 23:59 23:59 23:59 23:59 Intake Total 290 1240 Output Total 1925 Balance 290 -685 Meds/Results Medications: Active Medications Generic Name Dose Route Start Last Admin Trade Name Freq PRN Reason Stop Dose Admin Acetaminophen 650 mg 06/26/25 16:54 Acetaminophen 325 Mg Tablet PO Q4H PRN Mild Pain (1-3) or Fever Hydrocodone Bitart/Acetaminophen 1 tab 06/26/25 17:49 Hydrocodone/Acetaminophen (*Crx) 5-325 Mg Tablet PO Q6H PRN Pain Rated 4-6 Calcium Carbonate 200 mg 06/26/25 17:48 Calcium Carbonate (Tums) 500 Mg (200 Mg Elemental) PO Q6H PRN Indigestion Docusate Sodium 100 mg 06/26/25 17:48 Docusate Sodium 100 Mg Capsule PO Q12H PRN Constipation Finasteride 5 mg 06/27/25 09:00 06/27/25 08:31 Finasteride 5 Mg Tablet PO 5 mg DAILY SAM Administration Ceftriaxone Sodium 1 gm/ 50 mls @ 100 mls/hr 06/27/25 17:00 Sodium Chloride IVPB Q24H SAM Levothyroxine Sodium 25 mcg 06/27/25 06:30 06/27/25 05:50 Levothyroxine Sodium 25 Mcg Tablet PO 25 mcg DAILY@0630 SAM Administration Ondansetron HCl 4 mg 06/26/25 16:54 06/26/25 18:19 Ondansetron Inj 4 Mg/2 Ml Vial IV PUSH 4 mg Q4H PRN Administration Nausea Rosuvastatin Calcium 5 mg 06/27/25 09:00 06/27/25 08:31 Rosuvastatin 5 Mg Tablet PO 5 mg DAILY SAM Administration Vitamin D 25 mcg 06/27/25 09:00 06/27/25 08:31 Cholecalciferol (Vitamin D3) 25 Mcg (1,000 Units) Tablet PO 25 mcg DAILY SAM Administration Radiology Results: ITS Impressions Abdomen/Pelvis CT 06/26/25 16:14 IMPRESSION: 1. Directed noncontrast exam demonstrating very large Spigelian hernia but nonobstructive bowel gas pattern. Moderately severe left-sided hydroureteronephrosis appears chronic, not significantly changed in appearance from January 09 exam. 2. Other findings as above. Labs Labs: Laboratory Results - last 24 hr 06/26/25 06/26/25 06/27/25 14:20 20:07 04:39 WBC 5.7 5.8 RBC 4.35 L 3.80 L Hgb 11.9 L 10.3 L Hct 37.5 L 34.0 L MCV 86.2 89.5 MCH 27.4 27.1 MCHC 31.7 L 30.3 L RDW 16.0 H 16.3 H Plt Count 261 249 MPV 9.4 10.0 Immature Gran % (Auto) 0.4 0.3 Neut % (Auto) 79.1 H 64.5 Lymph % (Auto) 11.3 L 20.5 [place] % (Auto) 8.3 12.1 H Eos % (Auto) 0.5 2.1 Baso % (Auto) 0.4 0.5 Lymph # (Auto) 0.64 L 1.18 [place] # (Auto) 0.5 0.7 H Eos # (Auto) 0.0 0.1 Baso # (Auto) 0.0 0.0 Abs Immat Gran (auto) 0.02 0.02 Absolute Neuts (auto) 4.5 3.7 Absolute Nucleated RBC 0.000 0.000 Nucleated RBC % 0.0 0.0 PT 13.4 INR 1.0 Sodium 139 135 L Potassium 3.5 3.6 Chloride 108 H 107 Carbon Dioxide 25 24 Anion Gap 6 4 BUN 8 L D 10 Creatinine 0.87 0.93 Estim Creat Clear Calc Not Reportable 63 Estimated GFR > 60 > 60 Glucose 104 94 Calcium 9.2 8.7 Total Bilirubin 0.5 AST 21 ALT 14 Alkaline Phosphatase 116 Total Protein 7.9 Albumin 3.8 Urine Color Red H Urine Appearance Turbid H Urine pH 7.0 Ur Specific [place] 1.020 Urine Protein 3+ H Urine Glucose (UA) Negative Urine Ketones 1+ H Ur Blood (Man) 4+ H Urine Nitrate Negative Urine Bilirubin Negative Urine Urobilinogen 1.0 Leukocyte Esterase Rfl 2+ H Urine RBC >100 H Urine WBC >100 Ur Squamous Epith Cells Few Urine Bacteria 2+ H
[2025-06-27 13:47] VITALS: BP 136/74; PULSE 85; RESP 16; TEMP 36.4; O2SAT 98
[2025-06-27] MEDS: cefTRIAXone 1 GM in SODIUM CHLORIDE 0.9% IV 50 ML 100 ML IVPB (16:07)
[2025-06-27 21:31] VITALS: BP 129/69; PULSE 68; RESP 14; TEMP 36.5; O2SAT 94
[2025-06-28 05:04] VITALS: BP 134/68; PULSE 77; RESP 14; TEMP 36.4; O2SAT 95
[2025-06-28 05:39] LABS: Hematocrit 33.4 % (42.0-52.0); Hemoglobin 10.3 g/dL (14.0-18.0); Immature Granulocyte Percent A 0.2 % (0-0.5); Lymphocytes Absolute Auto 1.50 K/mm3 (0.9-3.2); Mean Corpuscular HGB Conc 30.8 g/dl (32-36); Mean Corpuscular Hemoglobin 26.8 pg (26-34); Mean Corpuscular Volume 86.8 fl (80-100); Nucleated Red Blood Cells Absolute Auto 0.000 K/mm3 (0.0-0.012); Nucleated Red Blood Cells Perc 0.0 % (0.0-0.2); Platelet Count Result 259 k/mm3 (150-375); Red Blood Count 3.85 M/mm3 (4.6-6.20); White Blood Count 5.5 K/mm3 (4.5-10.0)
[2025-06-28] MEDS: LEVOTHYROXINE SODIUM 25 MCG TABLET PO (05:45)
[2025-06-28 06:10] LABS: Anion Gap 6 mmol/L (4-12); Blood Urea Nitrogen 8 mg/dL (9-20); Calcium 9.1 mg/dL (8.4-10.2); Carbon Dioxide 26 mmol/L (22-30); Chloride 106 mmol/L (98-107); Estimated CRCL calculation 58 ml/min; Estimated Glomerular Filt Rate > 60; Glucose 99 mg/dL (65-110); Potassium 3.5 mmol/L (3.4-5.0); Sodium 138 mmol/L (137-145)
[2025-06-28 07:57] VITALS: RESP 16; O2SAT 95
[2025-06-28] MEDS: CHOLECALCIFEROL (VITAMIN D3) 25 MCG (1,000 UNITS) TABLET PO (08:04)
[2025-06-28] MEDS: FINASTERIDE 5 MG TABLET PO (08:04)
[2025-06-28] MEDS: ROSUVASTATIN 5 MG TABLET PO (08:04)
--- NOTE | 2025-06-28 13:26 | P.PNIM_ITS ---
Assessment and Plan Assessment and Plan (1) Acute urinary obstruction: Code(s): N13.9 - Obstructive and reflux uropathy, unspecified Status: Acute Assessment and Plan: Patient presents here with need for Salinas change, home health unable to perform, and he has gross hematuria with small clots. Chronic Sal[place] secondary to radiation cystitis/chronic urinary obstruction post treatment of colon cancer. Urology consulted, attributing symptoms to radiation cystitis/catheter use with possible complicated UTI. CT initially showed the Sal[place] catheter was currently in the bladder, catheter able to be retracted and subsequently draining clear/yellow urine. Salinas was able to be exchanged on 06/26, [address] for CBI. Despite presence of hematuria, hemoglobin currently 11.9 and was previously 11.9 in December of 2024. Stable. * CBI placed on 06/26, continue. Continue Sal[place] at discharge. * monitor hemoglobin, transfuse if less than 7. Hgb 11.9-->10.3, but received IV fluids and no current signs of bleeding. * possible UTI component. Started on ceftriaxone on 06/26, continued inpatient. * monitor renal function * urology consulted - clamped CBI. Monitor for recurrence. * continue Proscar (2) Hematuria: Qualifiers: Hematuria type: gross Qualified Code(s): R31.0 - Gross hematuria Code(s): R31.9 - Hematuria, unspecified Status: Acute Assessment and Plan: * see above (3) Urinary tract infection: Qualifiers: Encounter type: initial encounter Indwelling urinary catheter type: indwelling urethral catheter Urinary tract infection type: catheter-associated UTI Qualified Code(s): T83.511A - Infection and inflammatory reaction due to indwelling urethral catheter, initial encounter; N39.0 - Urinary tract infection, site not specified Code(s): N39.0 - Urinary tract infection, site not specified Status: Ruled-out Assessment and Plan: * UA with 2+ LE, >100 WBC, 2+ bacteria * continue IV Rocephin * urine culture pending (4) Indwelling Sal[place] catheter present: Code(s): Z97.8 - Presence of other specified devices Status: Chronic Assessment and Plan: * see above (5) Hypothyroidism: Qualifiers: Hypothyroidism type: unspecified Qualified Code(s): E03.9 - Hypothyroidism, unspecified Code(s): E03.9 - Hypothyroidism, unspecified Status: Chronic Assessment and Plan: * continue home Synthroid (6) Hyperlipidemia: Qualifiers: Hyperlipidemia type: unspecified Qualified Code(s): E78.5 - Hyperlipidemia, unspecified Code(s): E78.5 - Hyperlipidemia, unspecified Status: Chronic Assessment and Plan: * continue home statin Plan Code status: full code DVT prophylaxis: SCDs Dispo: likely home tomorrow Subjective Date/time seen: 06/28/25 13:26 Interval history: Patient seen and examined at bedside. Brother at bedside assists with history. Patient denies pain this AM. CBI clamped per urology. Brother continues to state he feels as though patient is at baseline. Urine culture still pending at this time. No other concerns at this time. Review of Systems Review of Systems: All systems reviewed & are unremarkable except as noted in HPI and below Exam Narrative: General: NAD Eyes: EOMI ENT: neck supple Cardiovascular: Regular rate and rhythm Respiratory: Clear to auscultation, respirations even and unlabored on RA Gastrointestinal: Soft, non tender Genitourinary: no suprapubic tenderness, salinas draining clear urine Musculoskeletal: No edema Skin: warm, dry Neuro: Alert. Psych: Mood appropriate Const: General: comfortable and no acute distress Other: , male, elderly, nontoxic appearance HENMT: Face/Nose/Sinus: Normal nares present Mouth: Yes dry mucous membranes Eyes: General: appearance normal, both eyes and all related structures Sclera: sclerae normal Pupils: Equal, round and reactive pupils present EOM: EOMs intact bilaterally Resp: Effort & Inspection: normal respiratory effort Auscultation: clear to auscultation bilaterally Cardio: Rate: regular rate Rhythm: regular rhythm Other: S1-S2 present without murmur, rub, ectopy GI: Other: Abdomen soft, nondistended, nontender. Normoactive bowel sounds in all quadrants. Colostomy present. Stoma pink and moist with no areas of breakdown noted. Firm small stool in ostomy bag. Urinary Catheter: Urinary Catheter: patent and draining (Urine with heavy sediment intermittently, pink-tinged) Skin: General skin exam: normal color and no rashes or lesions noted Other: Small pink area to coccyx with no skin breakdown. Neuro: Cranial nerves: Yes Equal, round and reactive pupils present Speech: normal speech Motor exam (neuro): 5/5 motor strength present throughout Sensory Exam: normal sensation Other: A&O to self and place. Provided incorrect year and poor situational history given. Intellectual disability. Extrem: General: normal to inspection Psych: Mental Status: mental status grossly normal Affect: normal affect Other: Poor insight and judgment, very pleasant. Objective Data Vital Signs Vital Signs: Vital Signs - 24 hr 06/27/25 13:47 06/27/25 20:00 06/27/25 21:31 Temperature 97.6 F 97.7 F Pulse Rate 85 68 Respiratory Rate 16 14 Blood Pressure 136/74 129/69 Pulse Oximetry 98 94 Oxygen Delivery Room Air 06/28/25 05:04 06/28/25 07:57 Temperature 97.6 F Pulse Rate 77 Respiratory Rate 14 16 Blood Pressure 134/68 Pulse Oximetry 95 95 Oxygen Delivery Room Air Intake/Output Intake/Output: Intake & Output 06/25/25 06/26/25 06/27/25 06/28/25 23:59 23:59 23:59 23:59 Intake Total 290 3270 1030 Output Total 3300 1500 Balance 290 30 -470 Meds/Results Medications: Active Medications Generic Name Dose Route Start Last Admin Trade Name Freq PRN Reason Stop Dose Admin Acetaminophen 650 mg 06/26/25 16:54 Acetaminophen 325 Mg Tablet PO Q4H PRN Mild Pain (1-3) or Fever Hydrocodone Bitart/Acetaminophen 1 tab 06/26/25 17:49 Hydrocodone/Acetaminophen (*Crx) 5-325 Mg Tablet PO Q6H PRN Pain Rated 4-6 Calcium Carbonate 200 mg 06/26/25 17:48 Calcium Carbonate (Tums) 500 Mg (200 Mg Elemental) PO Q6H PRN Indigestion Docusate Sodium 100 mg 06/26/25 17:48 Docusate Sodium 100 Mg Capsule PO Q12H PRN Constipation Finasteride 5 mg 06/27/25 09:00 06/28/25 08:04 Finasteride 5 Mg Tablet PO 5 mg DAILY SAM Administration Ceftriaxone Sodium 1 gm/ 50 mls @ 100 mls/hr 06/27/25 17:00 06/27/25 16:37 Sodium Chloride IVPB Infused Q24H SAM Infusion Levothyroxine Sodium 25 mcg 06/27/25 06:30 06/28/25 05:45 Levothyroxine Sodium 25 Mcg Tablet PO 25 mcg DAILY@0630 SAM Administration Ondansetron HCl 4 mg 06/26/25 16:54 06/26/25 18:19 Ondansetron Inj 4 Mg/2 Ml Vial IV PUSH 4 mg Q4H PRN Administration Nausea Rosuvastatin Calcium 5 mg 06/27/25 09:00 06/28/25 08:04 Rosuvastatin 5 Mg Tablet PO 5 mg DAILY SAM Administration Vitamin D 25 mcg 06/27/25 09:00 06/28/25 08:04 Cholecalciferol (Vitamin D3) 25 Mcg (1,000 Units) Tablet PO 25 mcg DAILY SAM Administration Radiology Results: ITS Impressions Abdomen/Pelvis CT 06/26/25 16:14 IMPRESSION: 1. Directed noncontrast exam demonstrating very large Spigelian hernia but nonobstructive bowel gas pattern. Moderately severe left-sided hydrourete ronephrosis appears chronic, not significantly changed in appearance from January 09 exam. 2. Other findings as above. Labs Labs: Laboratory Results - last 24 hr 06/28/25 04:43 WBC 5.5 RBC 3.85 L Hgb 10.3 L Hct 33.4 L MCV 86.8 MCH 26.8 MCHC 30.8 L RDW 16.5 H Plt Count 259 MPV 10.0 Immature Gran % (Auto) 0.2 Neut % (Auto) 56.4 Lymph % (Auto) 27.4 [place] % (Auto) 12.4 H Eos % (Auto) 3.1 Baso % (Auto) 0.5 Lymph # (Auto) 1.50 [place] # (Auto) 0.7 H Eos # (Auto) 0.2 Baso # (Auto) 0.0 Abs Immat Gran (auto) 0.01 Absolute Neuts (auto) 3.1 Absolute Nucleated RBC 0.000 Nucleated RBC % 0.0 Sodium 138 Potassium 3.5 Chloride 106 Carbon Dioxide 26 Anion Gap 6 BUN 8 L Creatinine 1.01 Estim Creat Clear Calc 58 Estimated GFR > 60 Glucose 99 Calcium 9.1 Quality VTE Prophylaxis VTE prophylaxis: mechanical ordered
[2025-06-28 14:00] VITALS: BP 131/71; PULSE 77; RESP 16; TEMP 36.2; O2SAT 97
[2025-06-28] MEDS: cefTRIAXone 1 GM in SODIUM CHLORIDE 0.9% IV 50 ML 100 ML IVPB (16:14)
--- NOTE | 2025-06-28 16:33 | P.PNUR_ITS ---
Progress Note: A&P Assessment and Plan (1) Hematuria: Qualifiers: Hematuria type: gross Qualified Code(s): R31.0 - Gross hematuria Code(s): R31.9 - Hematuria, unspecified Status: Acute Assessment and Plan: - Urine completely clear this morning - CBI removed and third port plugged. (2) Indwelling Almendarez catheter present: Code(s): Z97.8 - Presence of other specified devices Status: Chronic Assessment and Plan: - Almendarez catheter exchanged with 3-way. change in one month from insertion per protocol. - Uses Almendarez chronically, maintain on discharge (3) Urinary tract infection: Qualifiers: Encounter type: initial encounter Indwelling urinary catheter type: indwelling urethral catheter Urinary tract infection type: catheter-associated UTI Qualified Code(s): T83.511A - Infection and inflammatory reaction due to indwelling urethral catheter, initial encounter; N39.0 - Urinary tract infection, site not specified Code(s): N39.0 - Urinary tract infection, site not specified Status: Ruled-out Assessment and Plan: - Concern for UTI, cover with broad spectrum Abx - UCx pending. Culture driven antibioitcs per primary service. (4) Hydronephrosis, left: Code(s): N13.30 - Unspecified hydronephrosis Status: Acute Assessment and Plan: - Chronic Left hydro stable - Creatinine stable - Can be addressed in outpatient follow up Subjective Subjective Date/Time Seen: 06/28/25 16:33 Interval history: Patient seen and examined at bedside. Brother at bedside assists with history. cbi clamped yesterday and has been clear since. Review of Systems Review of Systems: All systems reviewed & are unremarkable except as noted in HPI and below Exam Const: General: comfortable and no acute distress Eyes: General: appearance normal, both eyes and all related structures Resp: Effort & Inspection: normal respiratory effort Urinary Catheter: Urinary Catheter: patent and draining and urine clear Skin: General skin exam: normal color Neuro: Speech: normal speech Objective Data Vital Signs Vital Signs: Vital Signs - 24 hr 06/27/25 20:00 06/27/25 21:31 06/28/25 05:04 Temperature 97.7 F 97.6 F Pulse Rate 68 77 Respiratory Rate 14 14 Blood Pressure 129/69 134/68 Pulse Oximetry 94 95 Oxygen Delivery Room Air 06/28/25 07:57 06/28/25 14:00 Temperature 97.2 F L Pulse Rate 77 Respiratory Rate 16 16 Blood Pressure 131/71 Pulse Oximetry 95 97 Oxygen Delivery Room Air Intake/Output Intake/Output: Intake & Output 06/25/25 06/26/25 06/27/25 06/28/25 23:59 23:59 23:59 23:59 Intake Total 290 3270 1030 Output Total 3300 1500 Balance 290 -30 -470 Meds/Results Medications: Active Medications Generic Name Dose Route Start Last Admin Trade Name Freq PRN Reason Stop Dose Admin Acetaminophen 650 mg 06/26/25 16:54 Acetaminophen 325 Mg Tablet PO Q4H PRN Mild Pain (1-3) or Fever Hydrocodone Bitart/Acetaminophen 1 tab 06/26/25 17:49 Hydrocodone/Acetaminophen (*Crx) 5-325 Mg Tablet PO Q6H PRN Pain Rated 4-6 Calcium Carbonate 200 mg 06/26/25 17:48 Calcium Carbonate (Tums) 500 Mg (200 Mg Elemental) PO Q6H PRN Indigestion Docusate Sodium 100 mg 06/26/25 17:48 Docusate Sodium 100 Mg Capsule PO Q12H PRN Constipation Finasteride 5 mg 06/27/25 09:00 06/28/25 08:04 Finasteride 5 Mg Tablet PO 5 mg DAILY SAM Administration Ceftriaxone Sodium 1 gm/ 50 mls @ 100 mls/hr 06/27/25 17:00 06/28/25 16:14 Sodium Chloride IVPB 100 mls/hr Q24H SAM Administration Levothyroxine Sodium 25 mcg 06/27/25 06:30 06/28/25 05:45 Levothyroxine Sodium 25 Mcg Tablet PO 25 mcg DAILY@0630 SAM Administration Ondansetron HCl 4 mg 06/26/25 16:54 06/26/25 18:19 Ondansetron Inj 4 Mg/2 Ml Vial IV PUSH 4 mg Q4H PRN Administration Nausea Rosuvastatin Calcium 5 mg 06/27/25 09:00 06/28/25 08:04 Rosuvastatin 5 Mg Tablet PO 5 mg DAILY SAM Administration Vitamin D 25 mcg 06/27/25 09:00 06/28/25 08:04 Cholecalciferol (Vitamin D3) 25 Mcg (1,000 Units) Tablet PO 25 mcg DAILY SAM Administration Radiology Results: ITS Impressions Abdomen/Pelvis CT 06/26/25 16:14 IMPRESSION: 1. Directed noncontrast exam demonstrating very large Spigelian hernia but nonobstructive bowel gas pattern. Moderately severe left-sided hydroureteronephrosis appears chronic, not significantly changed in appearance from January 09 exam. 2. Other findings as above. Labs Labs: Laboratory Results - last 24 hr 06/28/25 04:43 WBC 5.5 RBC 3.85 L Hgb 10.3 L Hct 33.4 L MCV 86.8 MCH 26.8 MCHC 30.8 L RDW 16.5 H Plt Count 259 MPV 10.0 Immature Gran % (Auto) 0.2 Neut % (Auto) 56.4 Lymph % (Auto) 27.4 [place] % (Auto) 12.4 H Eos % (Auto) 3.1 Baso % (Auto) 0.5 Lymph # (Auto) 1.50 [place] # (Auto) 0.7 H Eos # (Auto) 0.2 Baso # (Auto) 0.0 Abs Immat Gran (auto) 0.01 Absolute Neuts (auto) 3.1 Absolute Nucleated RBC 0.000 Nucleated RBC % 0.0 Sodium 138 Potassium 3.5 Chloride 106 Carbon Dioxide 26 Anion Gap 6 BUN 8 L Creatinine 1.01 Estim Creat Clear Calc 58 Estimated GFR > 60 Glucose 99 Calcium 9.1
[2025-06-28 21:32] VITALS: BP 130/61; PULSE 60; RESP 16; TEMP 36.6; O2SAT 97
[2025-06-28 22:38] VITALS: O2SAT 97
[2025-06-29 04:58] VITALS: BP 136/67; PULSE 64; RESP 16; TEMP 36.6; O2SAT 97
[2025-06-29] MEDS: LEVOTHYROXINE SODIUM 25 MCG TABLET PO (05:40)
[2025-06-29 05:48] LABS: Hematocrit 33.9 % (42.0-52.0); Hemoglobin 10.5 g/dL (14.0-18.0); Immature Granulocyte Percent A 0.5 % (0-0.5); Lymphocytes Absolute Auto 1.65 K/mm3 (0.9-3.2); Mean Corpuscular HGB Conc 31.0 g/dl (32-36); Mean Corpuscular Hemoglobin 27.0 pg (26-34); Mean Corpuscular Volume 87.1 fl (80-100); Nucleated Red Blood Cells Absolute Auto 0.000 K/mm3 (0.0-0.012); Nucleated Red Blood Cells Perc 0.0 % (0.0-0.2); Platelet Count Result 267 k/mm3 (150-375); Red Blood Count 3.89 M/mm3 (4.6-6.20); White Blood Count 6.2 K/mm3 (4.5-10.0)
[2025-06-29 06:07] LABS: Anion Gap 8 mmol/L (4-12); Blood Urea Nitrogen 10 mg/dL (9-20); Calcium 9.2 mg/dL (8.4-10.2); Carbon Dioxide 25 mmol/L (22-30); Chloride 105 mmol/L (98-107); Estimated CRCL calculation 60 ml/min; Estimated Glomerular Filt Rate > 60; Glucose 87 mg/dL (65-110); Potassium 3.5 mmol/L (3.4-5.0); Sodium 138 mmol/L (137-145)
[2025-06-29] MEDS: ROSUVASTATIN 5 MG TABLET PO (10:07)
[2025-06-29] MEDS: CHOLECALCIFEROL (VITAMIN D3) 25 MCG (1,000 UNITS) TABLET PO (10:07)
[2025-06-29] MEDS: FINASTERIDE 5 MG TABLET PO (10:07)
[2025-06-29 10:54] VITALS: O2SAT 97
--- NOTE | 2025-06-29 12:06 | PM.DS ---
DS: Admitting Diagnosis Discharge Date 06/29/2025 Admitting Diagnosis Urinary obstruction DS: Discharge Diagnosis Discharge Diagnosis (1) Acute urinary obstruction: Code(s): N13.9 - Obstructive and reflux uropathy, unspecified Status: Acute (2) Hematuria: Qualifiers: Hematuria type: gross Qualified Code(s): R31.0 - Gross hematuria Code(s): R31.9 - Hematuria, unspecified Status: Acute (3) Urinary tract infection: Qualifiers: Encounter type: initial encounter Indwelling urinary catheter type: indwelling urethral catheter Urinary tract infection type: catheter-associated UTI Qualified Code(s): T83.511A - Infection and inflammatory reaction due to indwelling urethral catheter, initial encounter; N39.0 - Urinary tract infection, site not specified Code(s): N39.0 - Urinary tract infection, site not specified Status: Ruled-out (4) Indwelling Sal[place] catheter present: Code(s): Z97.8 - Presence of other specified devices Status: Chronic (5) Hypothyroidism: Qualifiers: Hypothyroidism type: unspecified Qualified Code(s): E03.9 - Hypothyroidism, unspecified Code(s): E03.9 - Hypothyroidism, unspecified Status: Chronic (6) Hyperlipidemia: Qualifiers: Hyperlipidemia type: unspecified Qualified Code(s): E78.5 - Hyperlipidemia, unspecified Code(s): E78.5 - Hyperlipidemia, unspecified Status: Chronic DS: Summary Hospital Course Reason for hospitalization: Needing Salinas Exchanged, Hematuria Hospital Course: The patient is a 69-year-old male with a history of radiation cystitis and chronic urinary retention managed with a long-term indwelling Salinas catheter who presented on 06/26/25 due to inability to exchange his Salinas catheter at home and one week of gross hematuria with small clots. In the ED, he was initially tachycardic but hemodynamically stable. Laboratory evaluation showed stable renal function, no leukocytosis, and a baseline anemia with hemoglobin 11.9 g/dL. CT abdomen/pelvis demonstrated chronic moderately severe left hydroureteronephrosis without acute change and noted coiling of the Salinas catheter within the bladder. Urology was consulted, and the Salinas catheter was successfully retracted and exchanged for a 3-way catheter with initiation of continuous bladder irrigation (CBI), resulting in improved drainage. Hematuria was attributed to radiation cystitis and catheter-related irritation, with concern for a possible catheter-associated UTI. He was started on IV ceftriaxone, and UA later showed pyuria and bacteriuria with urine culture pending. Hemoglobin downtrended to 10.3 g/dL, felt to be dilutional without evidence of ongoing bleeding, and renal function remained stable throughout admission. CBI was gradually clamped and then discontinued after urine cleared, with no recurrence of hematuria. The Salinas catheter was maintained for chronic management, with plans for routine exchange as an outpatient. The patient remained clinically stable, at neurologic and functional baseline per family, and was planned for discharge home with continuation of Salinas care, completion of antibiotics per culture results, and outpatient urology follow-up. Urine culture did not end up showing any bacterial growth, antibiotics discontinued and patient can be safely discharged back to home with [facility] services. Plan for discharge at this time. Status at Discharge Overall status at discharge: patient is back to baseline Time Spent with Patient Time attestation: Total time spent providing and/or coordinating discharge services: 28 Exam Narrative: General: NAD Eyes: EOMI ENT: neck supple Cardiovascular: Regular rate and rhythm Respiratory: Clear to auscultation, respirations even and unlabored on RA Gastrointestinal: Soft, non tender Genitourinary: no suprapubic tenderness, salinas draining clear urine Musculoskeletal: No edema Skin: warm, dry Neuro: Alert. Psych: Mood appropriate Const: General: comfortable and no acute distress Other: , male, elderly, nontoxic appearance HENMT: Face/Nose/Sinus: Normal nares present Mouth: Yes dry mucous membranes Eyes: General: appearance normal, both eyes and all related structures Sclera: sclerae normal Pupils: Equal, round and reactive pupils present EOM: EOMs intact bilaterally Resp: Effort & Inspection: normal respiratory effort Auscultation: clear to auscultation bilaterally Cardio: Rate: regular rate Rhythm: regular rhythm Other: S1-S2 present without murmur, rub, ectopy GI: Other: Abdomen soft, nondistended, nontender. Normoactive bowel sounds in all quadrants. Colostomy present. Stoma pink and moist with no areas of breakdown noted. Firm small stool in ostomy bag. Urinary Catheter: Urinary Catheter: patent and draining (Urine with heavy sediment intermittently, pink-tinged) Skin: General skin exam: normal color and no rashes or lesions noted Other: Small pink area to coccyx with no skin breakdown. Neuro: Cranial nerves: Yes Equal, round and reactive pupils present Speech: normal speech Motor exam (neuro): 5/5 motor strength present throughout Sensory Exam: normal sensation Other: A&O to self and place. Provided incorrect year and poor situational history given. Intellectual disability. Extrem: General: normal to inspection Psych: Mental Status: mental status grossly normal Affect: normal affect Other: Poor insight and judgment, very pleasant. DS: Data Data Completed and Pending Labs on day of discharge: Labs from last 24 hours 06/29/25 04:35 WBC 6.2 RBC 3.89 L Hgb 10.5 L Hct 33.9 L MCV 87.1 MCH 27.0 MCHC 31.0 L RDW 16.7 H Plt Count 267 MPV 10.5 H Immature Gran % (Auto) 0.5 Neut % (Auto) 58.8 Lymph % (Auto) 26.7 [place] % (Auto) 10.0 H Eos % (Auto) 3.4 Baso % (Auto) 0.6 Lymph # (Auto) 1.65 [place] # (Auto) 0.6 Eos # (Auto) 0.2 Baso # (Auto) 0.0 Abs Immat Gran (auto) 0.03 Absolute Neuts (auto) 3.6 Absolute Nucleated RBC 0.000 Nucleated RBC % 0.0 Sodium 138 Potassium 3.5 Chloride 105 Carbon Dioxide 25 Anion Gap 8 BUN 10 Creatinine 0.98 Estim Creat Clear Calc 60 Estimated GFR > 60 Glucose 87 Calcium 9.2 Discharge Plan Discharge Attending physician on discharge: Luke Lindsey Consulting providers: Angi Abbasi; Ravi Pierre Discharging Clinician: Ravi Pierre Anticipated Discharge Date/Time: 06/29/25 12:05 Patient Disposition: Home with Home Health Service Activity: as tolerated Diet: regular Discharge Instructions: Per Care Coordination, patient to discharge with [facility] ([phone]) for custodial services. Agency will call to arrange time to resume services.. Discharge disposition: Home with [facility] services Take medications as prescribed Monitor blood pressures Take caution while standing, rising, or moving Change positions slowly taking a break between each position change If you standing feel dizzy sit back down and take a break Encouraged to continue with yearly vaccinations Return to the emergency department if you develop sudden shortness of breath, chest pain, nausea, vomiting, upset stomach or intractable diarrhea Return to the emergency department if you develop fever greater than 101.5 Follow-up with the primary care physician within 1-2 weeks Thank you for [facility] for your healthcare needs Patient Instructions: Antibiotic Form Patient Language: Frisian Stand Alone Forms: General Discharge Information Follow-up/Referrals: AraceliRoderick MD [Primary Care Provider, Unknown] Discharge Medications: Continued lidocaine HCl [Glydo] 2 % jelly in applicator 1 applic intra-urethral .every 30 days levothyroxine 25 mcg tablet 25 mcg PO DAILY finasteride 5 mg tablet 5 mg PO DAILY rosuvastatin 5 mg tablet 5 mg PO DAILY Discontinued ergocalciferol (vitamin D2) 1,000 unit capsule 1,000 mcg PO DAILY Date of admission: 06/27/25 10:43 Primary Care Provider: Susanna*Roderick Admitting Provider: Trice Shay Attending physician on admission: Trice Shay Condition: Stable Quality VTE Prophylaxis VTE prophylaxis: mechanical ordered
== END 2025-06-29 13:13 | disposition home health service (06) | DRG 699 ==
LOC: ANHED 16:54 → ANH2MED 17:16
PROVIDERS: Physician Assistant; Student in an Organized Health Care Education/Training Program; Admitting Provider Internal Medicine; Emergency Provider Nurse Practitioner Family; PCP Internal Medicine; Visit Provider Physician Assistant
DX: T83.511A Infection and inflammatory reaction due to indwelling urethral catheter, initial encounter (principal); N13.39 Other hydronephrosis; T83.091A Other mechanical complication of indwelling urethral catheter, initial encounter; Y73.8 Miscellaneous gastroenterology and urology devices associated with adverse incidents, not elsewhere classified; N30.81 Other cystitis with hematuria; E78.5 Hyperlipidemia, unspecified; E03.9 Hypothyroidism, unspecified; D64.9 Anemia, unspecified; F79 Unspecified intellectual disabilities; N32.81 Overactive bladder; R33.8 Other retention of urine; Z96.0 Presence of urogenital implants; Z87.440 Personal history of urinary (tract) infections; Z85.038 Personal history of other malignant neoplasm of large intestine; Z93.3 Colostomy status; Z87.442 Personal history of urinary calculi
CPT/HCPCS: 36415; 74176; 80048; 80053; 81001; 85025; 85610; 87086; 96361; 96374; 99285; A9270; G0378; J0696; J2405; J7120